=== PATIENT | female | born 1980 | race Caucasian/White ===

== ENCOUNTER 2018-06-09 09:12 | Emergency (ER) | payer SELFPAY ==
--- NOTE | 2018-06-09 09:53 | ER Document Report ---
HPI - HPI Pain Level: 3 Notes: Patient is a 37-year-old female with no significant past medical history who presents to the ED complaining of right shoulder pain primarily with above head activities. Patient states that her pain started a couple days ago. 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 Patient states that she will get a sharp pain during that activity that does not radiate. Patient otherwise does not have any pain or discomfort when she is at rest. Denies any injury. Denies any IV drug use. Denies any headache, fever, neck pain, URI, sore throat, chest pain, palpitations, syncope, cough, shortness of breath, wheeze, dyspnea, abdominal pain, nausea/vomiting/diarrhea, urinary retention, dysuria, hematuria, numbness/tingling, muscle paralysis/ weakness, or rash. - ROS Systems Reviewed and Negative: Yes All other systems reviewed and negative - CONSTITUTIONAL Constitutional: DENIES: Fever, Chills - EENT EENT: DENIES: Sore Throat, Ear Pain, Eye problems - NEURO Neurology: DENIES: Headache, Weakness, Vision blurred, Dizzinesss / Vertigo - CARDIOVASCULAR Cardiovascular: DENIES: Chest pain - RESPIRATORY Respiratory: DENIES: Trouble Breathing, Coughing - GASTROINTESTINAL Gastrointestinal: DENIES: Abdominal Pain, Black / Bloody Stools - REPRODUCTIVE Reproductive: DENIES: : - MUSCULOSKELETAL Musculoskeletal: REPORTS: Extremity pain Past Medical History - Social History Smoking Status: Never Smoker Chew tobacco use (# tins/day): No Frequency of alcohol use: Occasional Drug Abuse: None Family History: Reviewed & Not Pertinent Patient has suicidal ideation: No Patient has homicidal ideation: No - Past Medical History Cardiac Medical History: Reports: Hx Hypertension Neurological Medical History: Reports: Hx Migraine Renal/ Medical History: Reports: Hx Kidney Stones. Denies: Hx Peritoneal Dialysis Past Surgical History: Reports: Hx Cholecystectomy, Hx Tonsillectomy - Immunizations Hx Diphtheria, Pertussis, Tetanus Vaccination: Yes Vertical Provider Document - CONSTITUTIONAL Agree With Documented VS: Yes Notes: PHYSICAL EXAMINATION: GENERAL: Well-appearing, well-nourished and in no acute distress. NECK: Normal range of motion, supple without lymphadenopathy. Non-tender. Spurling negative. No rigidity/meningismus. LUNGS: Breath sounds clear to auscultation bilaterally and equal. No wheezes rales or rhonchi. HEART: Regular rate and rhythm without murmurs, rubs, gallops. Musculoskeletal: Rt shoulder: FROM to passive. LROM to active due to pain to abduction. Strength 4+/5 due to pain. + impingement test. Neg speed test. No crepitus. No erythema or warmth. No deformity or ecchymosis. RC intact 5+ /5 strength. Extremities: No cyanosis, clubbing, or edema b/l. Peripheral pulses 2+. Capillary refill less than 3 seconds. NEUROLOGICAL: Normal speech, normal gait. Normal sensory, motor exams PSYCH: Normal mood, normal affect. SKIN: Warm, Dry, normal turgor, no rashes or lesions noted. - INFECTION CONTROL TRAVEL OUTSIDE OF THE [place] IN LAST 30 DAYS: No Course - Re-evaluation Re-evalutation: 06/09/18 09:51 Patient is an afebrile, well-hydrated, 37-year-old female who presents to the ED with right shoulder pain, suspect impingement. Vitals are acceptable without any significant tachycardia, tachypnea, or hypoxia. PE is otherwise unremarkable for any neurovascular compromise, obvious tendon/ligament rupture, obvious fracture/dislocation, septic joint. No labs or imaging warranted at this time based on H&P. Exercises reviewed. Conservative measures for symptoms. Work note will be provided. Recheck with your PCM this week. Consider consult orthopedics for further evaluation and management with possible injection. Return to the ED with any worsening/concerning symptoms otherwise as reviewed in discharge. Patient is in agreement. Discharge - Discharge Clinical Impression: Right shoulder pain Qualifiers: Chronicity: acute Qualified Code(s): M25.511 - Pain in right shoulder Condition: Stable Disposition: HOME, SELF-CARE Additional Instructions: Rest, Ice, Compression Tylenol/ibuprofen as needed Light stretches daily Strength exercises as able Moist heat and massage may help F/u with your PCP in 3-5 days for a recheck Consider consult(s) with Orthopedics/physical therapy for ongoing/worsening symptoms Return to the ED with any worsening symptoms and/or development of fever, headache, chest pain, palpitations, syncope, shortness of breath, trouble breathing, abdominal pain, n/v/d, muscle weakness/paralysis, numbness/tingling, swelling, redness, or other worsening symptoms that are concerning to you. Forms: Elevated Blood Pressure, Return to Work Referrals: [facility] [Provider Group] - Follow up as needed
[2018-06-09 10:05] VITALS: BP 128/84
== END 2018-06-09 10:05 | disposition home or self-care (01) ==
LOC: ER 09:12
DX: M25.511 Pain in right shoulder (principal); I10 Essential (primary) hypertension
CPT/HCPCS: 99283

== ENCOUNTER 2018-09-27 15:38 | Emergency (ER) | payer BC ==
[2018-09-27] MEDS ORDERED: DIPHENHYDRAMINE HCL 50 MG/ML VIAL IV ONE (16:36)
[2018-09-27] MEDS ORDERED: PROMETHAZINE HCL INJ 25 MG/1 ML VIAL IV ONE (16:37)
[2018-09-27] MEDS ORDERED: KETOROLAC TROMETHAMINE INJ/PF 30 MG/1 ML SDV IV ONE (16:37)
--- NOTE | 2018-09-27 16:40 | ER Document Report ---
ED Medical Screen (RME) - General Chief Complaint: Headache Stated Complaint: HEADACHE Time Seen by Provider: 09/27/18 16:31 Notes: Patient is complaining of a migraine headache for 3 days. She does have a doctor diagnosed history of migraine headaches. This headache is the same as her migraine headaches except this lasted for 3 days. She has been nauseated. Has had to come to the emergency room rarely, but says an IV cocktail usually c onsisting of Benadryl, Toradol, and Phenergan will usually resolve the headache. Denies any fever. Has a history of hypertension on medications. Also has migraine headaches and anxiety. TRAVEL OUTSIDE OF THE [place] IN LAST 30 DAYS: No - Related Data Allergies/Adverse Reactions: Penicillins Allergy (Verified 09/27/18 15:39) metoclopramide HCl [From Reglan] Adverse Reaction (Intermediate, Verified 09/27/18 15:39) Tachycardia Past Medical History - Social History Frequency of alcohol use: Occasional Drug Abuse: None - Past Medical History Cardiac Medical History: Reports: Hx Hypertension Neurological Medical History: Reports: Hx Migraine Renal/ Medical History: Reports: Hx Kidney Stones. Denies: Hx Peritoneal Dialysis Past Surgical History: Reports: Hx Cholecystectomy, Hx Tonsillectomy - Immunizations Hx Diphtheria, Pertussis, Tetanus Vaccination: Yes Physical Exam - Vital signs Vitals: Temp Pulse Resp BP Pulse Ox 97.9 F 76 18 138/81 H 98 09/27/18 15:48 09/27/18 15:48 09/27/18 15:48 09/27/18 15:48 09/27/18 15:48 Course - Vital Signs Vital signs: Temp Pulse Resp BP Pulse Ox 97.9 F 76 18 138/81 H 98 09/27/18 15:48 09/27/18 15:48 09/27/18 15:48 09/27/18 15:48 09/27/18 15:48 Doctor's Discharge - Discharge Referrals: SIMONE ARANA MD [Primary Care Provider] - Follow up as needed
[2018-09-27] MEDS ORDERED: NORMAL SALINE 1000 ML 1,000 ML IV ONE (18:02)
[2018-09-27] MEDS ORDERED: BUTALB/ACETAMINOPHEN/CAFFEINE 1 TAB EACH PO ONE (18:03)
--- NOTE | 2018-09-27 18:09 | ER Document Report ---
ED General - General Chief Complaint: Headache Stated Complaint: HEADACHE Time Seen by Provider: 09/27/18 16:31 Notes: Patient is complaining of a migraine headache for 3 days typical of previous ones. She does have a doctor diagnosed history of migraine headaches. Patient complains of nausea and photophobia. Patient denies any neck stiffness, fevers, any infectious symptoms, vomiting or diarrhea. Has had to come to the emergency room rarely, but says an IV cocktail usually consisting of Benadryl, Toradol, and Phenergan will usually resolve the headache. Prior to arrival patient took one Fioricet that she has prescribed but it did not help which prompted her to come to the ED. TRAVEL OUTSIDE OF THE [place] IN LAST 30 DAYS: No - Related Data Allergies/Adverse Reactions: Penicillins Allergy (Verified 09/27/18 15:39) metoclopramide HCl [From Reglan] Adverse Reaction (Intermediate, Verified 09/27/18 15:39) Tachycardia Past Medical History - General Information source: Patient - Social History Smoking Status: Never Smoker Frequency of alcohol use: Occasional Drug Abuse: None Family History: Reviewed & Not Pertinent Patient has suicidal ideation: No Patient has homicidal ideation: No - Past Medical History Cardiac Medical History: Reports: Hx Hypertension Neurological Medical History: Reports: Hx Migraine Renal/ Medical History: Reports: Hx Kidney Stones. Denies: Hx Peritoneal Dialysis Past Surgical History: Reports: Hx Cholecystectomy, Hx Tonsillectomy - Immunizations Hx Diphtheria, Pertussis, Tetanus Vaccination: Yes Review of Systems - Review of Systems Constitutional: See HPI EENT: See HPI Cardiovascular: No symptoms reported Respiratory: No symptoms reported Gastrointestinal: See HPI Genitourinary: No symptoms reported Female Genitourinary: No symptoms reported Musculoskeletal: See HPI Skin: No symptoms reported Hematologic/Lymphatic: No symptoms reported Neurological/Psychological: No symptoms reported Physical Exam - Vital signs Vitals: Temp Pulse Resp BP Pulse Ox 97.9 F 76 18 138/81 H 98 09/27/18 15:48 09/27/18 15:48 09/27/18 15:48 09/27/18 15:48 09/27/18 15:48 - Notes Notes: PHYSICAL EXAMINATION: Reviewed vital signs and charting by RN GENERAL: Well-appearing, well-nourished and in mild distress. HEAD: Atraumatic, normocephalic. EYES: Pupils equal round and reactive to light, extraocular movements intact, sclera anicteric, conjunctiva are normal. NECK: Normal range of motion, supple LUNGS: Breath sounds clear to auscultation bilaterally and equal. No wheezes rales or rhonchi. HEART: Regular rate and rhythm without murmurs ABDOMEN: Soft, nontender, normoactive bowel sounds. No guarding, no rebound. No masses appreciated. EXTREMITIES: Normal range of motion, no pitting or edema. No cyanosis. NEUROLOGICAL: Face symmetric. Tongue protrudes midline. Extraocular motions intact. Pupils are 2 mm and equal. Normal speech, normal gait. Sensation is grossly intact throughout. Finger to nose testing normal. PSYCH: Normal mood, normal affect. SKIN: Warm, Dry, normal turgor, no rashes or lesions noted. Course - Re-evaluation Re-evalutation: 09/27/18 18:08 37-year-old female with diagnosed history of migraines presents to the emergency department for a typical migraine headache patient states she took one Fioricet about 1:00 this afternoon with no relief prompting her to seek care here. She was last in the emergency department in April 2018. She does state that they are becoming more frequent. She was given a headache cocktail in triage and approximately 1 hour later states that she does feel a little better but still has a intense headache left-sided periorbital. She does state her nausea has resolved. Plan is to give her 1 L of IV fluids and 2 Fioricet. 09/27/18 19:12 Patient received 2 Fioricet and received normal saline 1 L IV. Patient states she was sleeping and she does feel better and is ready to go home. Patient is stable for discharge. - Vital Signs Vital signs: Temp Pulse Resp BP Pulse Ox 97.9 F 76 18 138/81 H 98 09/27/18 15:48 09/27/18 15:48 09/27/18 15:48 09/27/18 15:48 09/27/18 15:48 Discharge - Discharge Clinical Impression: Migraine Qualifiers: Migraine type: without aura Status migrainosus presence: without status migrainosus Intractability: intractable Qualified Code(s): G43.019 - Migraine without aura, intractable, without status migrainosus Condition: Good Disposition: HOME, SELF-CARE Instructions: Antinausea Medication ([facility]), Use of Diphenhydramine, Toradol Injection ([facility]), Migraine Headache ([facility]) Referrals: SIMONE ARANA MD [Primary Care Provider] - Follow up as needed
[2018-09-27 19:32] VITALS: BP 132/79
== END 2018-09-27 19:30 | disposition home or self-care (01) ==
LOC: ER 15:38
DX: G43.019 Migraine without aura, intractable, without status migrainosus (principal); R11.0 Nausea; H53.149 Visual discomfort, unspecified; Z88.0 Allergy status to penicillin
CPT/HCPCS: 99283; 96361; 96374; 96375; J3490; J1200; J1885; J2550; J7030

== ENCOUNTER 2018-10-08 10:31 | Emergency (ER) | payer BC ==
[2018-10-08 10:53] VITALS: BP 145/93
--- NOTE | 2018-10-08 11:15 | ER Document Report ---
HPI - HPI Time Seen by Provider: 10/08/18 11:13 Pain Level: 4 Notes: Patient is a 37-year-old female with no significant past medical history presents emergency department complaining of continued right shoulder pain over the last 3 days. Patient states that she has overhead activities at work and that is when her pain is the worst. I evaluate this patient for the exact same complaint in June. Patient has not been seen by specialist since then. Patient states that her pain did improve thereafter, but did return. Patient states that internal rotation increase the pain as well as abduction activities. Pain does not radiate. No other concerns or complaints. No injury. Denies any headache, fever, neck pain,URI, sore throat, chest pain, palpitations, syncope, cough, shortness of breath, wheeze, dyspnea, abdominal pain, nausea/vomiting/diarrhea, urinary retention, dysuria, hematuria, loss of control of bowel or bladder, numbness/tingling, muscle paralysis/weakness, or rash. - ROS Systems Reviewed and Negative: Yes All other systems reviewed and negative - REPRODUCTIVE Reproductive: DENIES: : - MUSCULOSKELETAL Musculoskeletal: REPORTS: Extremity pain - R shoulder Past Medical History - Social History Smoking Status: Never Smoker Family History: Reviewed & Not Pertinent Patient has suicidal ideation: No Patient has homicidal ideation: No - Past Medical History Cardiac Medical History: Reports: Hx Hypertension Neurological Medical History: Reports: Hx Migraine Renal/ Medical History: Reports: Hx Kidney Stones. Denies: Hx Peritoneal Dialysis Past Surgical History: Reports: Hx Cholecystectomy, Hx Tonsillectomy - Immunizations Hx Diphtheria, Pertussis, Tetanus Vaccination: Yes Vertical Provider Document - CONSTITUTIONAL Agree With Documented VS: Yes Notes: PHYSICAL EXAMINATION: GENERAL: Well-appearing, well-nourished and in no acute distress. NECK: Normal range of motion, supple without lymphadenopathy. Non-tender. S purling negative. No rigidity/meningismus. LUNGS: Breath sounds clear to auscultation bilaterally and equal. No wheezes rales or rhonchi. HEART: Regular rate and rhythm without murmurs, rubs, gallops. Musculoskeletal: Rt shoulder: FROM to passive. LROM to active due to pain to abduction. Strength 4+/5 due to pain. + impingement test. Neg speed test. No crepitus. No erythema or warmth. No deformity or ecchymosis. RC intact 5+/5 strength. N/V intact distal. Extremities: No cyanosis, clubbing, or edema b/l. Peripheral pulses 2+. Capillary refill less than 3 seconds. NEUROLOGICAL: Normal speech, normal gait. Normal sensory, motor exams PSYCH: Normal mood, normal affect. SKIN: Warm, Dry, normal turgor, no rashes or lesions noted. - INFECTION CONTROL TRAVEL OUTSIDE OF THE [place] IN LAST 30 DAYS: No Course - Re-evaluation Re-evalutation: 10/08/18 11:37 Patient is an afebrile, well-hydrated, 37-year-old female who presents to the ED with right shoulder pain which I suspect to be impingement. Vitals are acceptable without any significant tachycardia, tachypnea, or hypoxia. PE is otherwise unremarkable for any neurovascular compromise, obvious tendon/ligament rupture, obvious fracture/dislocation, septic joint. Patient is nontoxic- appearing. Patient is able to ambulate and weight-bear although she is limping. No other labs or imaging warranted at this time based on H&P. I have thoroughly reviewed the patient that she needs to be followed up with a spe cialist for this ongoing intermittent issue. Conservative measures otherwise for symptoms. Recheck with your PCM in 3-5 days. Consider consult orthopedics. Return to the ED with any worsening/concerning symptoms otherwise as reviewed in discharge. Patient is in agreement. - Vital Signs Vital signs: Temp Pulse Resp BP Pulse Ox 98.0 F 78 18 145/93 H 99 10/08/18 10:51 10/08/18 10:51 10/08/18 10:51 10/08/18 10:51 10/08/18 10:51 Discharge - Discharge Clinical Impression: Shoulder pain, right Qualifiers: Chronicity: acute Qualified Code(s): M25.511 - Pain in right shoulder Condition: Stable Disposition: HOME, SELF-CARE Instructions: Exercise Program for the Shoulder ([facility]) Additional Instructions: Rest, Ice Tylenol/ibuprofen as needed Light stretches daily Strength exercises as able Moist heat and massage may help F/u with your PCP in 3-5 days for a recheck Schedule an appoint with orthopedics for further evaluation and management Return to the ED with any worsening symptoms and/or development of fever, headache, chest pain, palpitations, syncope, shortness of breath, trouble breathing, abdominal pain, n/v/d, muscle weakness/paralysis, numbness/tingling, swelling, redness, or other worsening symptoms that are concerning to you. Prescriptions: Diclofenac Sodium [Voltaren] 4 gm TP QID PRN #100 gel..gm. PRN Reason: Forms: Elevated Blood Pressure Referrals: SIMONE ARANA MD [Primary Care Provider] - Follow up as needed [facility] [Provider Group] - Follow up as needed
== END 2018-10-08 11:45 | disposition home or self-care (01) ==
LOC: ER 10:31
DX: M25.511 Pain in right shoulder (principal); I10 Essential (primary) hypertension; Z90.49 Acquired absence of other specified parts of digestive tract
CPT/HCPCS: 99283

== ENCOUNTER 2018-12-29 21:36 | Emergency (ER) | payer BC, MEDICAID ==
[2018-12-30] MEDS ORDERED: ONDANSETRON HCL INJ/PF 4 MG/2 ML SDV IV ONE (00:03)
[2018-12-30] MEDS ORDERED: KETOROLAC TROMETHAMINE INJ/PF 30 MG/1 ML SDV IV ONE (00:03)
--- NOTE | 2018-12-30 00:05 | ER Document Report ---
ED Medical Screen (RME) - General Chief Complaint: Possible Kidney Stone Stated Complaint: BACK PAIN Time Seen by Provider: 12/30/18 00:02 Primary Care Provider: SIMONE ARANA MD [Primary Care Provider] - Follow up as needed Mode of Arrival: Ambulatory Information source: Patient Notes: 38-year-old female presented to ED for right lower back pain that rolls around to the abdomen. She is got a history of kidney stones. She states this pain started intermittently yesterday but this afternoon it became constant. She states she has had constant dry heaves and is vomited x1. She has a history of high blood pressure remained migraines and anxiety. She states she just had her IUD taken out a week ago and is on control now. She has a history of a gallbladder removed and tonsils. She does have tenderness to the right flank area. 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 I have greeted and performed a rapid initial assessment of this patient. A comprehensive ED assessment and evaluation of the patient, analysis of test results and completion of medical decision making process will be conducted by an additional ED providers. TRAVEL OUTSIDE OF THE [place] IN LAST 30 DAYS: No - Related Data Allergies/Adverse Reactions: Penicillins Allergy (Verified 09/27/18 15:39) metoclopramide HCl [From Reglan] Adverse Reaction (Intermediate, Verified 09/27/18 15:39) Tachycardia Past Medical History - Past Medical History Cardiac Medical History: Reports: Hx Hypertension Neurological Medical History: Reports: Hx Migraine Renal/ Medical History: Reports: Hx Kidney Stones. Denies: Hx Peritoneal Dialysis Past Surgical History: Reports: Hx Cholecystectomy, Hx Tonsillectomy - Immunizations Hx Diphtheria, Pertussis, Tetanus Vaccination: Yes Doctor's Discharge - Discharge Referrals: SIMONE ARANA MD [Primary Care Provider] - Follow up as needed
[2018-12-30 00:43] LABS: APPEARANCE,URINE SLIGHTLY-CLOUDY; BILIRUBIN,URINE NEGATIVE (NEGATIVE); COLOR,URINE YELLOW; GLUCOSE, URINE NEGATIVE (NEGATIVE); KETONES,URINE NEGATIVE (NEGATIVE); LEUKOCYTE ESTERASE,URINE NEGATIVE (NEGATIVE); NITRITE,URINE NEGATIVE (NEGATIVE); PROTEIN,URINE NEGATIVE (NEGATIVE); URINE SPECIFIC GRAVITY 1.018; UROBILINOGEN,URINE NEGATIVE mg/dL (<2.0)
--- NOTE | 2018-12-30 01:14 | ER Document Report ---
ED General - General Chief Complaint: Possible Kidney Stone Stated Complaint: BACK PAIN Time Seen by Provider: 12/30/18 00:02 Primary Care Provider: SIMONE ARANA MD [NO LOCAL MD] - Follow up tomorrow Mode of Arrival: Ambulatory Notes: Patient is a 38-year-old female with a history of nephrolithiasis, previous cholecystectomy, who presents with 2 days of right flank pain rating to her rig ht lower abdomen. Patient states her pain started gradually, has worsened since onset. Is a throbbing, aching, constant discomfort. Severe in nature. Nothing improves or worsens the pain. Denies associated hematuria, dysuria, fever or constitutional symptoms. His associated nausea and vomiting. Has not seen her primary care physician regarding today's concerns. States this feels similar to when she is had kidney stones in the past. TRAVEL OUTSIDE OF THE [place] IN LAST 30 DAYS: No - HPI Onset: Yesterday Onset/Duration: Gradual Quality of pain: Achy, Cramping Severity: Moderate Pain Level: 4 Associated symptoms: Nausea, Vomiting Exacerbated by: Denies Relieved by: Denies Similar symptoms previously: Yes Recently seen / treated by doctor: No - Related Data Allergies/Adverse Reactions: Penicillins Allergy (Verified 12/30/18 00:58) metoclopramide HCl [From Reglan] Adverse Reaction (Intermediate, Verified 12/30/18 00:58) Tachycardia Past Medical History - General Information source: Patient - Social History Smoking Status: Never Smoker Frequency of alcohol use: Occasional Drug Abuse: None Family History: Reviewed & Not Pertinent Patient has suicidal ideation: No Patient has homicidal ideation: No - Past Medical History Cardiac Medical History: Reports: Hx Hypertension Neurological Medical History: Reports: Hx Migraine Renal/ Medical History: Reports: Hx Kidney Stones. Denies: Hx Peritoneal Dialysis Past Surgical History: Reports: Hx Cholecystectomy, Hx Tonsillectomy - Immunizations Hx Diphtheria, Pertussis, Tetanus Vaccination: Yes Review of Systems - Review of Systems Notes: Constitutional: Negative for fever. HENT: Negative for sore throat. Eyes: Negative for visual changes. Cardiovascular: Negative for chest pain. Respiratory: Negative for shortness of breath. Gastrointestinal: Positive for right flank tenderness and vomiting Genitourinary: Negative for dysuria. Musculoskeletal: Negative for back pain. Skin: Negative for rash. Neurological: Negative for headaches, weakness or numbness. 10 point ROS negative except as marked above and in HPI. Physical Exam - Vital signs Vitals: Temp Pulse Resp BP Pulse Ox 98.1 F 85 18 150/94 H 100 12/29/18 22:55 12/29/18 22:55 12/29/18 22:55 12/29/18 22:55 12/29/18 22:55 Interpretation: Hypertensive Notes: PHYSICAL EXAMINATION: GENERAL: Well-appearing, well-nourished and in no acute distress. HEAD: Atraumatic, normocephalic. EYES: Pupils equal round and reactive to light, extraocular movements intact, sclera anicteric, conjunctiva are normal. ENT: nares patent, oropharynx clear without exudates. Moist mucous membranes. NECK: Normal range of motion, supple without lymphadenopathy LUNGS: Breath sounds clear to auscultation bilaterally and equal. No wheezes rales or rhonchi. HEART: Regular rate and rhythm without murmurs ABDOMEN: Soft, nontender, normoactive bowel sounds. No guarding, no rebound. No masses appreciated. Mild right CVA tenderness to palpation EXTREMITIES: Normal range of motion, no pitting or edema. No cyanosis. NEUROLOGICAL: No focal neurological deficits. Moves all extremities spontaneously and on command. PSYCH: Normal mood, normal affect. SKIN: Warm, Dry, normal turgor, no rashes or lesions noted. Course - Re-evaluation Re-evalutation: 12/30/18 01:47 Patient presents with right flank pain rating into her right lower groin for the past 48 hours. On exam the patient is well in appearance, vitals within normal limits, in no distress. Patient does have some focal tenderness the right CVA region although no other focal abdominal tenderness rebound or guarding. Carson gonzalez is otherwise without any acute complaints beyond nausea and one episode of vomiting associated with this pain. Urinalysis is unremarkable without evidence of pyelonephritis or . CT of the abdomen and pelvis obtained in triage without contrast does not demonstrate any evidence of urolithiasis, nephrolithiasis or appendicitis. Patient is status post cholecystectomy. Differential includes kidney stone that is subsequently passed, musculoskeletal origin. I have expanded the patient that there is significant diagnostic uncertainty regarding the etiology of her presentation today and have advised her to follow-up with her primary care physician or return to the ER within 24 hours for recheck. I have emphasized given the degree of uncertainty that it is critical that she return immediately should she have any new or worsening symptoms. At this time will discharge with return precautions and follow-up recommendations. Verbal discharge instructions given a the bedside and opportunity for questions given. Medication warnings reviewed. Patient is in agreement with this plan and has verbalized understanding of return precautions and the need for primary care follow-up in the next 24 hours. 12/30/18 01:49 - Vital Signs Vital signs: Temp Pulse Resp BP Pulse Ox 97.5 F 78 20 141/84 H 99 12/30/18 03:10 12/30/18 03:10 12/30/18 03:10 12/30/18 03:10 12/30/18 03:10 - Diagnostic Test Radiology reviewed: Reports reviewed Discharge - Discharge Clinical Impression: Right flank pain Nausea & vomiting Qualifiers: Vomiting type: unspecified Vomiting Intractability: non-intractable Qualified Code(s): R11.2 - Nausea with vomiting, unspecified Condition: Good Disposition: HOME, SELF-CARE Additional Instructions: The exact cause of your pain is uncertain. As we discussed your CT scan and urine study is normal today. Because we are uncertain of what is going on today I strongly encourage you to follow-up with your primary care doctor or return to the emergency room within 24 hours for recheck. Please return immediately if you develop any new or worsening symptoms, worsening of your pain, fever greater than 100.4 F, persistent vomiting, or any other symptoms that are worrisome to you. For your pain: Take ibuprofen 600 mg and acetaminophen 1000 mg every 6 hours together as needed for pain. You have been sent home with Sivan to use as needed Forms: Return to Work Referrals: SIMONE ARANA MD [NO LOCAL MD] - Follow up tomorrow
--- NOTE | 2018-12-30 01:18 | RADIOLOGY REPORT (SQ) ---
CLINICAL HISTORY: right flank pain, hx of kidney stones COMPARISON: None. TECHNIQUE: CT ABDOMEN PELVIS WITHOUT IV CONTRAST on 12/30/2018 12:02 AM CDT This exam was performed according to our departmental dose-optimization program, which includes automated exposure control, adjustment of the mA and/or kV according to patient size and/or use of iterative reconstruction technique. FINDINGS: Lower lungs are clear. Abdomen: The liver is normal in appearance. There is no biliary dilatation. Cholecystectomy was performed. The pancreas and spleen are normal in appearance. The adrenal glands and kidneys are unremarkable. Abdominal aorta is normal in course and caliber without aneurysm. There is no free air. There is no retroperitoneal adenopathy. Pelvis: There is no bowel obstruction. Urinary bladder is unremarkable. There is no free fluid. Uterus is normal in size. Appendix is normal. Skeleton: There are no acute osseous findings. No suspicious bony lesions. IMPRESSION: No acute inflammatory process. No renal or ureteral calculi.
[2018-12-30] MEDS ORDERED: LIDOCAINE 5% (700 MG) TRANSDERMAL ADH..PATCH TP ONE (01:49)
[2018-12-30] MEDS ORDERED: ONDANSETRON ODT 4 MG TAB (6 TAB/ER DISP) PO PRN (01:49)
[2018-12-30] MEDS ORDERED: FENTANYL CITRATE INJ/PF 100 MCG/2 ML AMPUL IV PRN (01:49)
[2018-12-30 03:12] VITALS: BP 141/84
== END 2018-12-30 03:15 | disposition home or self-care (01) ==
LOC: ER 21:36
DX: R11.2 Nausea with vomiting, unspecified (principal); R10.9 Unspecified abdominal pain; M54.9 Dorsalgia, unspecified; I10 Essential (primary) hypertension; Z87.442 Personal history of urinary calculi; Z90.49 Acquired absence of other specified parts of digestive tract; Z88.0 Allergy status to penicillin
CPT/HCPCS: 99284; 96374; 96375; 81025; 81001; 74176; J3010; J1885; J2405

== ENCOUNTER 2019-01-28 18:47 | Emergency (ER) | payer BC ==
[2019-01-28 19:44] VITALS: BP 134/85
== END 2019-01-28 22:18 | disposition left against medical advice (07) ==
LOC: ER 18:47
DX: Z53.21 Procedure and treatment not carried out due to patient leaving prior to being seen by health care provider (principal); M25.511 Pain in right shoulder

== ENCOUNTER 2019-02-01 21:02 | Emergency (ER) | payer BC ==
[2019-02-01 21:10] VITALS: BP 134/90
--- NOTE | 2019-02-01 22:17 | RADIOLOGY REPORT (SQ) ---
3 VIEWS OF RIGHT SHOULDER HISTORY: Joint pain. COMPARISON: None. FINDINGS: No acute fracture is seen. The joint spaces are preserved. The soft tissues are unremarkable. IMPRESSION: No acute fracture or malalignment.
[2019-02-01] MEDS ORDERED: TRAMADOL HCL 50 MG TABLET PO ONE (23:01)
--- NOTE | 2019-02-01 23:05 | ER Document Report ---
ED Extremity Problem, Upper - General Chief Complaint: Shoulder Pain Stated Complaint: RIGHT SHOULDER PAIN Time Seen by Provider: 02/01/19 22:47 Primary Care Provider: SUYAPA PENG FNP [Primary Care Provider] - Follow up as needed Mode of Arrival: Ambulatory Information source: Patient TRAVEL OUTSIDE OF THE [place] IN LAST 30 DAYS: No - HPI Patient complains to provider of: Pain, Right, Shoulder Notes: Patient here with complaints of right shoulder pain. The patient states she is been dealing with some chronic right shoulder pain for quite some time now. She seen orthopedics and is currently in the process of getting an MRI set up. States that a few days ago she lifted up to heavy totes at work and felt severe pain in her right shoulder and has had pain since. She is been taking NSAIDs as well as using topical NSAIDs with out any relief. She has an appointment scheduled with her orthopedist on Saturday, but states that she has not been able to sleep due to pain is here hoping to get something to help with her pain. She denies any trauma. No fever. No numbness, [place], weakness. Pain is constant, severe, worse with any movement, better with rest. No chest pain or shortness of breath. No abdominal pain. No nausea, vomiting, diarrhea. She denies any other complaints at this time. - Related Data Allergies/Adverse Reactions: Penicillins Allergy (Verified 01/28/19 18:48) metoclopramide HCl [From Reglan] Adverse Reaction (Intermediate, Verified 01/28/19 18:48) Tachycardia Past Medical History - Social History Smoking Status: Unknown if Ever Smoked Family History: Reviewed & Not Pertinent - Past Medical History Cardiac Medical History: Reports: Hx Hypertension Neurological Medical History: Reports: Hx Migraine Renal/ Medical History: Reports: Hx Kidney Stones. Denies: Hx Peritoneal Dialysis Past Surgical History: Reports: Hx Cholecystectomy, Hx Tonsillectomy - Immunizations Hx Diphtheria, Pertussis, Tetanus Vaccination: Yes Review of Systems - Review of Systems -: Yes All other systems reviewed and negative Physical Exam - Vital signs Vitals: Temp Pulse Resp BP Pulse Ox 98.1 F 114 H 20 134/90 H 97 02/01/19 21:08 02/01/19 21:08 02/01/19 21:08 02/01/19 21:08 02/01/19 21:08 - Notes Notes: GENERAL: alert, cooperative, nontoxic, no distress. HEAD: normocephalic, atraumatic EYES: conjunctiva pink without discharge, no external redness or swelling. EARS: no external swelling, no external redness NOSE: atraumatic, no external swelling MOUTH/THROAT: mucous membranes moist and pink NECK: soft, supple, full range of motion, no meningismus. CHEST: no distress, lungs clear and equal throughout. No wheezing, rales, rhonchi. CARDIAC: regular rate and rhythm, no murmur, normal capillary refill, normal pulses. BACK: full range of motion, no CVA tenderness. EXTREMITIES: Tenderness palpation of the right anterior shoulder at the joint. Slight limited range of motion secondary to pain. Normal strength. Normal sensation and pulse distally. No redness, no swelling. NEURO: alert and oriented 3, no focal deficits, full range of motion of all extremities. PYSCH: appropriate mood, affect. Patient is cooperative. SKIN: pink, warm, dry, no rash. Course - Re-evaluation Re-evalutation: 02/01/19 23:03 Patient is nontoxic-appearing with stable vitals. Patient here with complaints of right shoulder pain. She has some chronic right shoulder problems the pain is been significantly worse after she lifted up some heavy totes at work. She has an appointment scheduled with her orthopedist on Saturday, but the pain is gotten significantly worse and she wanted to have this evaluated was hoping to get some pain medication. On exam there is no redness, she has afebrile and there is no signs of infection. X-ray shows no acute abnormality. Neurovascularly she is intact with no abnormalities. Did look the patient up on [place] [facility] aware, she has had no narcotic pain prescriptions in the last several years, therefore I do not mind giving her a very small supply of Ultram to take as needed for pain with her NSAIDs that she is already taking. Patient verbalized understanding of this. She is instructed to follow-up with her orthopedist as scheduled on Saturday, follow-up sooner for worsening pain, fever, redness, swelling, any further concerns. The patient's emergency department workup and current diagnosis were explained to the patient and or family. Follow-up instructions were provided. Medications if prescribed were discussed. Instructions for when to return to the emergency department including specific worrisome symptoms were discussed with the patient and/or family. - Vital Signs Vital signs: Temp Pulse Resp BP Pulse Ox 98.1 F 114 H 20 134/90 H 97 02/01/19 21:08 02/01/19 21:08 02/01/19 21:08 02/01/19 21:08 02/01/19 21:08 - Diagnostic Test Radiology reviewed: Image reviewed, Reports reviewed - Negative for right shoulder Discharge - Discharge Clinical Impression: Right shoulder pain Qualifiers: Chronicity: chronic Qualified Code(s): M25.511 - Pain in right shoulder; G89.29 - Other chronic pain Condition: Stable Disposition: HOME, SELF-CARE Instructions: Shoulder Injury (OM), Exercise Program for the Shoulder ([facility]) Additional Instructions: Take medication as prescribed. Follow-up with your orthopedist as scheduled on Saturday. Follow-up sooner for worsening pain, fever, redness, numbness, tingling, weakness, any further concerns. Prescriptions: Tramadol HCl [Ultram 50 mg Tablet] 50 mg PO Q6HP PRN #12 tablet PRN Reason: Forms: Elevated Blood Pressure, Smoking Cessation Education Referrals: SUYAPA PENG FNP [Primary Care Provider] - Follow up as needed
== END 2019-02-01 23:39 | disposition home or self-care (01) ==
LOC: ER 21:02
DX: M25.511 Pain in right shoulder (principal); G89.29 Other chronic pain; I10 Essential (primary) hypertension; Z90.49 Acquired absence of other specified parts of digestive tract; Z88.0 Allergy status to penicillin; Z87.442 Personal history of urinary calculi
CPT/HCPCS: 99283

== ENCOUNTER 2019-02-16 07:26 | Emergency (ER) | payer SELFPAY ==
[2019-02-16 08:19] LABS: ABSOLUTE BASOPHILS # (AUTO) 0.1 10^3/uL (0.0-0.2); ABSOLUTE EOSINOPHILS # (AUTO) 0.2 10^3/uL (0.0-0.6); ABSOLUTE LYMPHOCYTES (AUTO) 1.7 10^3/uL (0.5-4.7); ABSOLUTE MONOCYTES (AUTO) 0.5 10^3/uL (0.1-1.4); ABSOLUTE NEUT (AUTO) 4.4 10^3/uL (1.7-8.2); EOSINOPHILS % (AUTO) 2.2 % (0-6); MEAN CORPUSCULAR HEMOGLOBIN 31.7 pg (27.0-33.4); MEAN CORPUSCULAR HGB CONC 35.1 g/dL (32.0-36.0); MEAN CORPUSCULAR VOLUME 90 fl (80-97); MONOCYTES % (AUTO) 6.8 % (3-13); PLATELET COUNT 245 10^3/uL (150-450); RED CELL DISTRIBUTION WIDTH 13.2 % (11.5-14.0); TOTAL CELLS COUNTED % (AUTO) 100 %; WHITE BLOOD COUNT 6.8 10^3/uL (4.0-10.5)
[2019-02-16 08:32] LABS: AMORPHOUS SEDIMENT,URINE TRACE /HPF; APPEARANCE,URINE TURBID; BILIRUBIN,URINE NEGATIVE (NEGATIVE); GLUCOSE, URINE NEGATIVE (NEGATIVE); KETONES,URINE NEGATIVE (NEGATIVE); LEUKOCYTE ESTERASE,URINE NEGATIVE (NEGATIVE); NITRITE,URINE NEGATIVE (NEGATIVE); PROTEIN,URINE 30 mg/dL (NEGATIVE); URINE SPECIFIC GRAVITY 1.025; UROBILINOGEN,URINE NEGATIVE mg/dL (<2.0)
[2019-02-16 08:33] LABS: COLOR,URINE YELLOW
[2019-02-16 09:04] LABS: ALANINE AMINOTRANSFERASE 26 U/L (9-52); ALBUMIN 4.2 g/dL (3.5-5.0); ALKALINE PHOSPHATASE 50 U/L (38-126); ANION GAP 10 (5-19); ASPARTATE AMINO TRANSFERASE 20 U/L (14-36); BILIRUBIN,DIRECT 0.3 mg/dL (0.0-0.4); BILIRUBIN,TOTAL 0.6 mg/dL (0.2-1.3); BLOOD UREA NITROGEN 8 mg/dL (7-20); CALCIUM 9.5 mg/dL (8.4-10.2); CARBON DIOXIDE 29 mmol/L (22-30); CHLORIDE 102 mmol/L (98-107); GLUCOSE 90 mg/dL (75-110); POTASSIUM 3.5 mmol/L (3.6-5.0); SODIUM 140.7 mmol/L (137-145)
[2019-02-16] MEDS ORDERED: NORMAL SALINE 1000 ML 1,000 ML IV ONE (09:12)
[2019-02-16] MEDS ORDERED: ONDANSETRON HCL INJ/PF 4 MG/2 ML SDV IV ONE (09:12)
--- NOTE | 2019-02-16 09:52 | ER Document Report ---
ED GI/ - General Chief Complaint: Nausea/Vomiting Stated Complaint: VOMITING/CRAMPS/FATIGUE Time Seen by Provider: 02/16/19 08:23 Mode of Arrival: Ambulatory Information source: Patient Notes: Patient is a 38-year-old female presented to the emergency department with headache, nausea, vomiting and breast pain that started . Patient reports her last normal period was on 02/05/2019. She does state she had a Mirena IUD removed on December 15 and started taking control pills. Patient reports that she feels like she may be . She states that she took a home test and it was faintly positive. Patient reports that she is a G5, P4. She has a history of hypertension. She denies any fevers or abdominal pain. TRAVEL OUTSIDE OF THE [place] IN LAST 30 DAYS: No - Related Data Allergies/Adverse Reactions: Penicillins Allergy (Verified 02/16/19 07:27) metoclopramide HCl [From Reglan] Adverse Reaction (Intermediate, Verified 02/16/19 07:27) Tachycardia Past Medical History - General Information source: Patient - Social History Smoking Status: Never Smoker Frequency of alcohol use: None Drug Abuse: None Family History: Reviewed & Not Pertinent Patient has suicidal ideation: No Patient has homicidal ideation: No - Past Medical History Cardiac Medical History: Reports: Hx Hypertension Neurological Medical History: Reports: Hx Migraine Renal/ Medical History: Reports: Hx Kidney Stones. Denies: Hx Peritoneal Dialysis Past Surgical History: Reports: Hx Cholecystectomy, Hx Tonsillectomy - Immunizations Hx Diphtheria, Pertussis, Tetanus Vaccination: Yes Review of Systems - Review of Systems Constitutional: No symptoms reported EENT: No symptoms reported Cardiovascular: No symptoms reported Respiratory: No symptoms reported Gastrointestinal: Nausea, Vomiting Genitourinary: No symptoms reported Female Genitourinary: No symptoms reported Musculoskeletal: See HPI Skin: No symptoms reported Hematologic/Lymphatic: No symptoms reported Neurological/Psychological: Headaches Physical Exam - Vital signs Vitals: Temp Pulse Resp BP Pulse Ox 98.1 F 80 18 149/82 H 95 02/16/19 07:42 02/16/19 07:42 02/16/19 07:42 02/16/19 07:42 02/16/19 07:42 - Notes Notes: PHYSICAL EXAMINATION: GENERAL: Well-appearing, well-nourished and in no acute distress. HEAD: Atraumatic, normocephalic. EYES: Pupils equal round and reactive to light, extraocular movements intact, conjunctiva are normal. ENT: Nares patent, oropharynx clear without exudates. Moist mucous membranes. NECK: Normal range of motion, supple without lymphadenopathy LUNGS: Breath sounds clear to auscultation bilaterally and equal. No wheezes rales or rhonchi. HEART: Regular rate and rhythm without murmurs ABDOMEN: Soft, nontender, nondistended abdomen. No guarding, no rebound. No masses appreciated. Female : No CVA tenderness Musculoskeletal: Normal range of motion, no pitting or edema. No cyanosis. NEUROLOGICAL: Cranial nerves grossly intact. Normal speech, normal gait. Nor mal sensory, motor exams PSYCH: Normal mood, normal affect. SKIN: Warm, Dry, normal turgor, no rashes or lesions noted. Course - Re-evaluation Re-evalutation: Patient appears well, abdomen is soft, nontender with no guarding and no rebound. Labs as recorded. CBC, CMP and serum hCG are all unremarkable. Urinalysis normal. Patient feels much improved after administration of antiemetics and IV fluids. Patient's vital signs have been within normal limits since time of arrival. - Vital Signs Vital signs: Temp Pulse Resp BP Pulse Ox 98.1 F 57 L 16 131/80 H 100 02/16/19 07:42 02/16/19 10:43 02/16/19 10:43 02/16/19 10:43 02/16/19 10:43 - Laboratory Result Diagrams: 02/16/19 08:09 02/16/19 08:09 Laboratory results interpreted by me: 02/16/19 02/16/19 08:09 08:09 Potassium 3.5 L Urine Protein 30 H Urine Blood SMALL H Discharge - Discharge Clinical Impression: Vomiting Qualifiers: Vomiting type: unspecified Vomiting Intractability: unspecified Nausea presence: unspecified Qualified Code(s): R11.10 - Vomiting, unspecified Fatigue Qualifiers: Fatigue type: unspecified Qualified Code(s): R53.83 - Other fatigue Condition: Stable Disposition: HOME, SELF-CARE Additional Instructions: All of your lab work today was unremarkable. Your serum test was negative. Please continue to push fluids. Use the antinausea medication as needed. Follow-up with primary care. Prescriptions: Ondansetron [Zofran Odt 4 mg Tablet] 1 - 2 tab PO Q4H PRN #15 tab.rapdis PRN Reason: For Nausea/Vomiting Forms: Return to Work
[2019-02-16 10:44] VITALS: BP 131/80
== END 2019-02-16 10:44 | disposition home or self-care (01) ==
LOC: ER 07:26
DX: R11.2 Nausea with vomiting, unspecified (principal); R53.83 Other fatigue; N64.4 Mastodynia; I10 Essential (primary) hypertension
CPT/HCPCS: 99284; 96361; 96374; 36415; 84702; 85025; 81025; 80053; 81001; J2405; J7030

== ENCOUNTER 2019-06-03 18:39 | Emergency (ER) | payer BC ==
[2019-06-03 18:52] VITALS: BP 136/77
--- NOTE | 2019-06-03 19:07 | ER Document Report ---
ED Medical Screen (RME) - General Chief Complaint: Knee Pain Stated Complaint: RIGHT KNEE PAIN/SWELLING Time Seen by Provider: 06/03/19 19:03 Mode of Arrival: Ambulatory Information source: Patient Notes: Patient presents with right knee pain. Reports knee pain for the last couple months but recently she started working with a new job and is hard on her feet. Also started working out. Denies recent trauma. Reports in the past she has had swelling on the knee and had to have it drained. No erythema no warmth noted at this time. I have greeted and performed a rapid initial assessment of this patient. A comprehensive ED assessment and evaluation of the patient, analysis of test results and completion of the medical decision making process will be conducted by additional ED providers. Dictation of this chart was performed using voice recognition software; therefore, there may be some unintended grammatical errors. TRAVEL OUTSIDE OF THE [place] IN LAST 30 DAYS: No - Related Data Allergies/Adverse Reactions: Penicillins Allergy (Verified 02/16/19 07:27) metoclopramide HCl [From Reglan] Adverse Reaction (Intermediate, Verified 02/16/19 07:27) Tachycardia Past Medical History - Past Medical History Cardiac Medical History: Reports: Hx Hypertension Neurological Medical History: Reports: Hx Migraine Renal/ Medical History: Reports: Hx Kidney Stones. Denies: Hx Peritoneal Dialysis Past Surgical History: Reports: Hx Cholecystectomy, Hx Tonsillectomy - Immunizations Hx Diphtheria, Pertussis, Tetanus Vaccination: Yes Physical Exam - Vital signs Vitals: Temp Pulse Resp BP Pulse Ox 97.9 F 66 18 136/77 H 100 06/03/19 18:51 06/03/19 18:51 06/03/19 18:51 06/03/19 18:51 06/03/19 18:51 Course - Vital Signs Vital signs: Temp Pulse Resp BP Pulse Ox 97.9 F 66 18 136/77 H 100 06/03/19 18:51 06/03/19 18:51 06/03/19 18:51 06/03/19 18:51 06/03/19 18:51
--- NOTE | 2019-06-03 19:24 | RADIOLOGY REPORT (SQ) ---
EXAM DESCRIPTION: KNEE RIGHT 4 VIEWS COMPLETED DATE/TIME: 06/03/2019 7:18 pm REASON FOR STUDY: pain swelling COMPARISON: None. NUMBER OF VIEWS: Four views. TECHNIQUE: AP, lateral, and both oblique radiographic images acquired of the right knee. LIMITATIONS: None. FINDINGS: MINERALIZATION: Normal. BONES: No acute fracture or dislocation. No worrisome bone lesions. JOINT: No effusion. SOFT TISSUES: No soft tissue swelling. No radio-opaque foreign body. OTHER: No other significant finding. IMPRESSION: NEGATIVE STUDY OF THE RIGHT KNEE. NO RADIOGRAPHIC EVIDENCE OF ACUTE INJURY. TECHNICAL DOCUMENTATION: JOB ID: [id number] [employer]- All Rights Reserved Reading location - IP/workstation name: [email or web address]
[2019-06-03] MEDS ORDERED: HYDROCODONE/ACETAMINOPHEN 5-325 MG (6 TAB/ER DISP) PO PRN (20:38)
--- NOTE | 2019-06-03 20:42 | ER Document Report ---
HPI - HPI Patient complains to provider of: Right knee pain Time Seen by Provider: 06/03/19 19:03 Onset/Duration: Gradual Quality of pain: Achy Pain Level: 3 Context: Patient reports a 3-day history of right knee pain. Patient denies any trauma to the knee. Patient states she did recently start a new job in which she is on her feet frequently and also started working out this week. Associated Symptoms: Other - Right knee pain. denies: Fever Exacerbated by: Standing, Movement, Walking Relieved by: Denies Similar symptoms previously: No Recently seen / treated by doctor: No - ROS ROS below otherwise negative: Yes Systems Reviewed and Negative: Yes All other systems reviewed and negative - CONSTITUTIONAL Constitutional: DENIES: Fever - GASTROINTESTINAL Gastrointestinal: DENIES: Nausea, Patient vomiting - REPRODUCTIVE Reproductive: DENIES: : - MUSCULOSKELETAL Musculoskeletal: REPORTS: Extremity pain. 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 Denies: Hx Peritoneal Dialysis Past Surgical History: Reports: Hx Cholecystectomy, Hx Tonsillectomy - Immunizations Hx Diphtheria, Pertussis, Tetanus Vaccination: Yes Vertical Provider Document - CONSTITUTIONAL Agree With Documented VS: Yes Exam Limitations: No Limitations General Appearance: WD/WN, No Apparent Distress - INFECTION CONTROL TRAVEL OUTSIDE OF THE [place] IN LAST 30 DAYS: No - HEENT HEENT: Atraumatic, Normocephalic - NECK Neck: Normal Inspection, Supple. negative: Lymphadenopathy-Left, Lymphadenopathy-Right - RESPIRATORY Respiratory: No Respiratory Distress - CARDIOVASCULAR Pulses: Normal: Posterior tibial - MUSCULOSKELETAL/EXTREMETIES Musculoskeletal/Extremeties: MAEW, FROM, Tender - Tenderness to medial inferior compartment of right knee, no effusion, no laxity with varus or valgus maneuvers. Patellar tendon intact., No Edema. negative: Eccymosis - NEURO Level of Consciousness: Awake, Alert, Appropriate Motor/Sensory: No Motor Deficit, No Sensory Deficit - DERM Integumentary: Warm, Dry, No Rash Course - Re-evaluation Re-evalutation: 06/03/19 20:39 No acute findings on x-ray. Patient denies any recent trauma. Patient does report starting a new job as well as starting workouts at the gym which have aggravated her right knee pain. Patient states she does feel knee gives out periodically. Will immobilize and refer to orthopedics at this time. - Vital Signs Vital signs: Temp Pulse Resp BP Pulse Ox 97.9 F 66 18 136/77 H 100 06/03/19 18:51 06/03/19 18:51 06/03/19 18:51 06/03/19 18:51 06/03/19 18:51 - Diagnostic Test Radiology reviewed: Image reviewed, Reports reviewed Procedures - Immobilization Right Knee Pre-Proc Neuro Vasc Exam: Normal Immobilizer type: Knee immobilizer Performed by: PCT Post-Proc Neuro Vasc Exam: Normal Alignment checked and good: Yes Discharge - Discharge Clinical Impression: Overuse injury Right knee pain Qualifiers: Chronicity: unspecified Qualified Code(s): M25.561 - Pain in right knee Condition: Stable Disposition: HOME, SELF-CARE Instructions: Use of Crutches ([facility]), Ice & Elevation ([facility]), Knee Immobilizing Splint ([facility]), Oral Narcotic Medication ([facility]), Overuse Syndrome ([facility]) Additional Instructions: Return immediately for any new or worsening symptoms Followup with your primary care provider, call tomorrow to make a followup appointment Weightbearing as tolerated Follow-up with orthopedics for further evaluation, call tomorrow for an appointment Forms: Return to Work Referrals: IBRAHIMA ROBERTS MD [Primary Care Provider] - Follow up as needed [facility] [Provider Group] - Follow up as needed
== END 2019-06-03 21:00 | disposition home or self-care (01) ==
LOC: ER 18:39
DX: M25.561 Pain in right knee (principal); M79.604 Pain in right leg; X50.3XXA Overexertion from repetitive movements, initial encounter; I10 Essential (primary) hypertension
CPT/HCPCS: 99283; 73564; L1830

== ENCOUNTER 2019-07-07 20:18 | Emergency (ER) | payer BC ==
--- NOTE | 2019-07-07 20:31 | ER Document Report ---
ED Medical Screen (RME) - General Chief Complaint: Flank Pain Stated Complaint: POSSIBLE KIDNEY STONE Time Seen by Provider: 07/07/19 20:28 Primary Care Provider: IBRAHIMA ROBERTS MD [Primary Care Provider] - Follow up as needed Mode of Arrival: Ambulatory Information source: Patient Notes: 78-year-old female with history of kidney stones presents emergency department with right-sided flank pain since Saturday now radiating around to the right side of her stomach today. With nausea and vomiting. Declines antinausea medicine. Took Compazine earlier today for pain. Denies . I have greeted and performed a rapid initial assessment of this patient. A comprehensive ED assessment and evaluation of the patient, analysis of test results and completion of the medical decision making process will be conducted by additional ED providers. Dictation of this chart was performed using voice recognition software; therefore, there may be some unintended grammatical errors. TRAVEL OUTSIDE OF THE [place] IN LAST 30 DAYS: No - Related Data Allergies/Adverse Reactions: Penicillins Allergy (Verified 02/16/19 07:27) metoclopramide HCl [From Reglan] Adverse Reaction (Intermediate, Verified 02/16/19 07:27) Tachycardia Past Medical History - Past Medical History Cardiac Medical History: Reports: Hx Hypertension Neurological Medical History: Reports: Hx Migraine Renal/ Medical History: Reports: Hx Kidney Stones. Denies: Hx Peritoneal Dialysis Past Surgical History: Reports: Hx Cholecystectomy, Hx Tonsillectomy - Immunizations Hx Diphtheria, Pertussis, Tetanus Vaccination: Yes Physical Exam - Vital signs Vitals: Temp Pulse Resp BP Pulse Ox 98.0 F 92 18 126/77 H 97 07/07/19 20:23 07/07/19 20:23 07/07/19 20:23 07/07/19 20:23 07/07/19 20:23 Course - Vital Signs Vital signs: Temp Pulse Resp BP Pulse Ox 98.0 F 92 18 126/77 H 97 07/07/19 20:23 07/07/19 20:23 07/07/19 20:23 07/07/19 20:23 07/07/19 20:23 Doctor's Discharge - Discharge Referrals: IBRAHIMA ROBERTS MD [Primary Care Provider] - Follow up as needed
[2019-07-07 21:01] LABS: ABSOLUTE BASOPHILS # (AUTO) 0.1 10^3/uL (0.0-0.2); ABSOLUTE EOSINOPHILS # (AUTO) 0.3 10^3/uL (0.0-0.6); ABSOLUTE LYMPHOCYTES (AUTO) 3.8 10^3/uL (0.5-4.7); ABSOLUTE MONOCYTES (AUTO) 0.8 10^3/uL (0.1-1.4); ABSOLUTE NEUT (AUTO) 6.3 10^3/uL (1.7-8.2); EOSINOPHILS % (AUTO) 2.4 % (0-6); HEMATOCRIT 38.6 % (36.0-47.0); HEMOGLOBIN 13.4 g/dL (12.0-15.5); MEAN CORPUSCULAR HEMOGLOBIN 31.2 pg (27.0-33.4); MEAN CORPUSCULAR HGB CONC 34.6 g/dL (32.0-36.0); MEAN CORPUSCULAR VOLUME 90 fl (80-97); MONOCYTES % (AUTO) 6.9 % (3-13); RED BLOOD COUNT 4.28 10^6/uL (3.72-5.28); RED CELL DISTRIBUTION WIDTH 13.6 % (11.5-14.0); SEGMENTED NEUTROPHILS % (AUTO) 55.7 % (42-78); TOTAL CELLS COUNTED % (AUTO) 100 %; WHITE BLOOD COUNT 11.2 10^3/uL (4.0-10.5)
[2019-07-07 21:12] LABS: APPEARANCE,URINE SLIGHTLY-CLOUDY; BILIRUBIN,URINE NEGATIVE (NEGATIVE); COLOR,URINE YELLOW; GLUCOSE, URINE NEGATIVE (NEGATIVE); KETONES,URINE NEGATIVE (NEGATIVE); LEUKOCYTE ESTERASE,URINE NEGATIVE (NEGATIVE); NITRITE,URINE NEGATIVE (NEGATIVE); PROTEIN,URINE NEGATIVE (NEGATIVE); URINE SPECIFIC GRAVITY 1.028; UROBILINOGEN,URINE NEGATIVE mg/dL (<2.0)
[2019-07-07 21:16] LABS: PLATELET COUNT 242 10^3/uL (150-450)
[2019-07-07 21:19] LABS: ALBUMIN 4.4 g/dL (3.5-5.0); ALKALINE PHOSPHATASE 70 U/L (38-126); ANION GAP 8 (5-19); ASPARTATE AMINO TRANSFERASE 21 U/L (14-36); BILIRUBIN,DIRECT 0.1 mg/dL (0.0-0.4); BILIRUBIN,TOTAL 0.3 mg/dL (0.2-1.3); BLOOD UREA NITROGEN 14 mg/dL (7-20); CALCIUM 9.6 mg/dL (8.4-10.2); CARBON DIOXIDE 32 mmol/L (22-30); CHLORIDE 98 mmol/L (98-107); GLUCOSE 93 mg/dL (75-110); POTASSIUM 3.5 mmol/L (3.6-5.0); TOTAL PROTEIN 7.7 g/dL (6.3-8.2)
[2019-07-07] MEDS ORDERED: ONDANSETRON HCL INJ/PF 4 MG/2 ML SDV IV ONE (22:22)
[2019-07-07] MEDS ORDERED: MORPHINE SULFATE 10 MG/ML INJ IV ONE (22:22)
[2019-07-07] MEDS ORDERED: NORMAL SALINE 1000 ML 1,000 ML IV ONE (22:22)
[2019-07-07] MEDS ORDERED: KETOROLAC TROMETHAMINE INJ/PF 30 MG/1 ML SDV IV ONE (22:22)
--- NOTE | 2019-07-07 22:23 | ER Document Report ---
ED GI/ - General Chief Complaint: Flank Pain Stated Complaint: POSSIBLE KIDNEY STONE Time Seen by Provider: 07/07/19 20:28 Primary Care Provider: IBRAHIMA ROBERTS MD [NO LOCAL MD] - Follow up as needed Mode of Arrival: Ambulatory Notes: Patient is a 38-year-old female with a history of kidney stones that comes to the emergency department for chief complaint of intermittent flank pain on the right side radiating around to her abdomen, this is been mild but today pain got much worse, she started feeling clammy and chills, she got nauseated. She also states she has had 4 episodes of loose stools today. Pain is worse in both the flank and the abdomen on the right side today. She denies fever, vomiting. She denies any surgeries except cholecystectomy, takes no daily medications. TRAVEL OUTSIDE OF THE [place] IN LAST 30 DAYS: No - Related Data Allergies/Adverse Reactions: Penicillins Allergy (Verified 02/16/19 07:27) metoclopramide HCl [From Reglan] Adverse Reaction (Intermediate, Verified 02/16/19 07:27) Tachycardia Home Medications: Losartan-HCTZ 100/12.5mg - 1 tab Daily. Propanolol 20mg - 1 tab QID Past Medical History - General Information source: Patient - Social History Smoking Status: Never Smoker Frequency of alcohol use: Occasional Drug Abuse: None Lives with: Family Family History: Reviewed & Not Pertinent Patient has suicidal ideation: No Patient has homicidal ideation: No - Past Medical History Cardiac Medical History: Reports: Hx Hypertension Neurological Medical History: Reports: Hx Migraine Renal/ Medical History: Reports: Hx Kidney Stones. Denies: Hx Peritoneal Dialysis Past Surgical History: Reports: Hx Cholecystectomy, Hx Tonsillectomy - Immunizations Hx Diphtheria, Pertussis, Tetanus Vaccination: Yes Review of Systems - Review of Systems Constitutional: No symptoms reported EENT: No symptoms reported Cardiovascular: No symptoms reported Respiratory: No symptoms reported Gastrointestinal: See HPI Genitourinary: See HPI Female Genitourinary: No symptoms reported Musculoskeletal: No symptoms reported Skin: No symptoms reported Hematologic/Lymphatic: No symptoms reported Neurological/Psychological: No symptoms reported Physical Exam - Vital signs Vitals: Temp Pulse Resp BP Pulse Ox 98.0 F 92 18 126/77 H 97 07/07/19 20:23 07/07/19 20:23 07/07/19 20:23 07/07/19 20:23 07/07/19 20:23 - Notes Notes: GENERAL: Alert, interacts well. No acute distress. HEAD: Normocephalic, atraumatic. EYES: Pupils equal, round, and reactive to light. Extraocular movements intact. ENT: Oral mucosa moist, tongue midline. Oropharynx unremarkable. Airway patent. LUNGS: Clear to auscultation bilaterally, no wheezes, rales, or rhonchi. No respiratory distress. HEART: Regular rate and rhythm. No murmur ABDOMEN: Soft, non-tender. Non-distended. Bowel sounds present in all 4 quadrants. GENITOURINARY: Deferred EXTREMITIES: Moves all 4 extremities spontaneously. No edema, normal radial and dorsalis pedis pulses bilaterally. No cyanosis. BACK: no cervical, thoracic, lumbar midline tenderness. No saddle anesthesia, normal distal neurovascular exam. Moves all extremities in full range of motion. NEUROLOGICAL: Alert and oriented x3. Normal speech. Cranial nerves II through XII grossly intact. PSYCH: Normal affect, normal mood. SKIN: Warm, dry, normal turgor. No rashes or lesions noted. Course - Re-evaluation Re-evalutation: Abdomen is soft and benign. There is no CVA tenderness noted on her exam either. Patient is nontoxic in appearance. Vital signs unremarkable. I did review work-up from triage including CBC, chemistry, urinalysis. This is unremarkable except for some borderline low potassium and dehydration. Given IV fluids, discussed the potassium with patient. test negative. I did not order the CAT scan but I did review the CAT scan ordered in triage and this shows no acute findings. There is no nephrolithiasis either. Discussed with patient. Patient was symptomatic on reevaluation. I suspect this is a viral illness because of her chills, generalized pain and aches, and intermittent diarrhea. She has not been on recent antibiotics, had any recent travel, and she has only 4 episodes through the whole day which are nonbloody. Low suspicion of C. difficile. Discussed expectations, follow-up, provided with work-release, discussed return precautions. Patient states appreciation and agreement. - Vital Signs Vital signs: Temp Pulse Resp BP Pulse Ox 97.8 F 73 16 146/76 H 96 07/08/19 00:37 07/08/19 00:37 07/08/19 00:37 07/08/19 00:37 07/08/19 00:37 - Laboratory Result Diagrams: 07/07/19 20:30 07/07/19 20:30 Laboratory results interpreted by me: 07/07/19 07/07/19 07/07/19 20:30 20:30 20:30 WBC 11.2 H Potassium 3.5 L Carbon Dioxide 32 H Urine Blood SMALL H Discharge - Discharge Clinical Impression: Flank pain, Nausea Abdominal pain Qualifiers: Abdominal location: generalized Qualified Code(s): R10.84 - Generalized abdominal pain Diarrhea Qualifiers: Diarrhea type: unspecified type Qualified Code(s): R19.7 - Diarrhea, unspecified Condition: Stable Disposition: HOME, SELF-CARE Additional Instructions: Your imaging does not show a passing stone, appendicitis, or any concerning findings at this time. This is most likely viral/infectious and should resolve on its own with time. Take Tylenol or ibuprofen for pain, nausea medication as prescribed needed, I recommend probiotics [id number] as well. Start with bland food and slowly progress. Follow-up with primary care. Return to the emergency department for any concerning or worsening symptoms including severe worsening pain, spiking fevers, vomiting, or any other concerning or worsening symptoms. Prescriptions: Promethazine HCl [Phenergan 25 mg Tablet] 25 mg PO Q6H PRN #15 tablet PRN Reason: Forms: Return to Work Referrals: IBRAHIMA ROBERTS MD [NO LOCAL MD] - Follow up as needed
--- NOTE | 2019-07-07 22:24 | RADIOLOGY REPORT (SQ) ---
EXAM DESCRIPTION: CT ABDOMEN PELVIS WITHOUT IV CONTRAST COMPLETED DATE/TME: 07/07/2019 20:30 CLINICAL HISTORY: 38 years, Female, RIGHT FLANK PAIN HX KIDNEY STONES COMPARISON: 12/30/2018 CT TECHNIQUE: 400 Images stored on PACS. All CT scanners at this facility use dose modulation, iterative reconstruction, and/or weight based dosing when appropriate to reduce radiation dose to as low as reasonably achievable (ALARA). [facility]: Dose Right [facility]: CareDose [facility]: Dose Right [facility]: Teradose 4D [facility]: [employer] LIMITATIONS: None. FINDINGS: Limited evaluation of the lung bases is unremarkable. Osseous structures are grossly intact. Fatty infiltrative change to the liver. Spleen, adrenal glands, pancreas, kidneys are unremarkable. Status post cholecystectomy. Negative for urinary tract calculus or hydronephrosis. No gross evidence for bowel obstruction. No free air or free fluid. Normal appendix IMPRESSION: Fatty infiltrative change to the liver. Negative for urinary tract calculus or hydronephrosis TECHNICAL DOCUMENTATION: Quality ID # [id number]: Final reports with documentation of one or more dose reduction techniques (e.g., Automated exposure control, adjustment of the mA and/or kV according to patient size, use of iterative reconstruction technique) copyright 2010 [email or web address]- All Rights Reserved
[2019-07-08] MEDS ORDERED: ONDANSETRON ODT 4 MG TAB (6 TAB/ER DISP) PO PRN (00:13)
[2019-07-08 00:38] VITALS: BP 146/76
== END 2019-07-08 00:38 | disposition home or self-care (01) ==
LOC: ER 20:18
DX: R10.84 Generalized abdominal pain (principal); R19.7 Diarrhea, unspecified; R11.0 Nausea; I10 Essential (primary) hypertension; Z88.0 Allergy status to penicillin; Z87.442 Personal history of urinary calculi; Z90.49 Acquired absence of other specified parts of digestive tract
CPT/HCPCS: 99284; 96361; 96374; 96375; 36415; 85025; 81025; 80053; 81001; 74176; J1885; J2270; J2405; J7030

== ENCOUNTER 2019-10-15 11:42 | Emergency (ER) | payer BC ==
[2019-10-15] MEDS ORDERED: NORMAL SALINE 1000 ML 1,000 ML IV ONE (13:03)
[2019-10-15] MEDS ORDERED: PROCHLORPERAZINE EDISYLATE INJ 10 MG/2 ML VIAL IV ONE (13:03)
[2019-10-15] MEDS ORDERED: DIPHENHYDRAMINE HCL 50 MG/ML VIAL IV ONE (13:03)
[2019-10-15] MEDS ORDERED: KETOROLAC TROMETHAMINE INJ/PF 30 MG/1 ML SDV IV ONE (13:03)
--- NOTE | 2019-10-15 13:05 | ER Document Report ---
ED Medical Screen (RME) - General Chief Complaint: Nausea/Vomiting Stated Complaint: WEAKNESS,NAUSEA,VOMITING Time Seen by Provider: 10/15/19 12:59 Primary Care Provider: HEALTH,EMPLOYEE [ACTIVE STAFF] - Follow up as needed Mode of Arrival: Ambulatory Information source: Patient Notes: 38-year-old female presents to ED for complaint of migraine with nausea and vomiting. 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 She states she has had the headache cocktail of Compazine Benadryl and Toradol before and it was effective. She states she has been to a neurologist for her migraines. States his neurologist put her Topamax, Imitrex, and Fioricet. She states she is not able to afford these medications until she gets her insurance. He is allergic to Reglan. She states she does have sensitivity to light sound or smell. TRAVEL OUTSIDE OF THE [place] IN LAST 30 DAYS: No - HPI Onset: Yesterday Onset/Duration: Persistent Quality of pain: Sharp, Throbbing Severity: Moderate Pain Level: 4 Associated Symptoms: Headache, Nausea, Vomiting Exacerbated by: Other - Light sound and noise Relieved by: Denies Similar symptoms previously: Yes Recently seen / treated by doctor: No - Related Data Smoking: Non-smoker Frequency of alcohol use: None Drug Abuse: None Allergies/Adverse Reactions: Penicillins Allergy (Verified 10/15/19 13:02) metoclopramide HCl [From Reglan] Adverse Reaction (Intermediate, Verified 10/15/19 13:02) Tachycardia Past Medical History - General Information source: Patient - Social History Cigarette use (# per day): No Chew tobacco use (# tins/day): No Frequency of alcohol use: None Drug Abuse: None Occupation: [employer] Lives with: Spouse/Significant other Family history: Reviewed & Not Pertinent - Past Medical History Cardiac Medical History: Reports: Hx Hypertension Pulmonary Medical History: Reports: None EENT Medical History: Reports: None Neurological Medical History: Reports: Hx Migraine Endocrine Medical History: Reports: None Renal/ Medical History: Reports: Hx Kidney Stones Malignancy Medical History: Reports: None GI Medical History: Reports: None Musculoskeltal Medical History: Reports None Skin Medical History: Reports None Psychiatric Medical History: Reports: Hx Anxiety Traumatic Medical History: Reports: None Infectious Medical History: Reports: None Past Surgical History: Reports: Hx Cholecystectomy, Hx Tonsillectomy - Immunizations Immunizations up to date: Yes Hx Diphtheria, Pertussis, Tetanus Vaccination: Yes Review of Systems - Review of Systems Constitutional: No symptoms reported EENT: No symptoms reported Cardiovascular: No symptoms reported Respiratory: No symptoms reported Gastrointestinal: Nausea, Vomiting Genitourinary: No symptoms reported Female Genitourinary: No symptoms reported Musculoskeletal: No symptoms reported Skin: No symptoms reported Hematologic/Lymphatic: No symptoms reported Neurological/Psychological: Headaches - Migraine -: Yes All other systems reviewed and negative Physical Exam - Vital signs Vitals: Temp Pulse Resp BP Pulse Ox 98.6 F 88 16 142/87 H 96 10/15/19 12:21 10/15/19 12:21 10/15/19 12:21 10/15/19 12:21 10/15/19 12:21 Course - Re-evaluation Re-evalutation: 10/15/19 20:41 After performing a Medical Screening Examination, I estimate there is LOW risk for ACUTE GLAUCOMA, TEMPORAL ARTERITIS, MENINGITIS, INCRANIAL HEMORRHAGE, or ISCHEMIC STROKE thus I consider the discharge disposition reasonable. I have reevaluated this patient multiple times and no significant life threatening changes are noted. The patient and I have discussed the diagnosis and risks, and we agree with discharging home with close follow-up with the understanding that symptoms and presentations can change. We also discussed returning to the [facility] immediately if new or worsening symptoms occur. We have discussed the symptoms which are most concerning (e.g., changing or worsening symptoms, new numbness or weakness, vomiting, fever) that necessitate immediate return. - Vital Signs Vital signs: Temp Pulse Resp BP Pulse Ox 98.3 F 85 16 143/90 H 97 10/15/19 14:45 10/15/19 14:45 10/15/19 14:45 10/15/19 14:45 10/15/19 14:45 Doctor's Discharge - Discharge Clinical Impression: Migraine Qualifiers: Migraine type: unspecified Status migrainosus presence: without status migrainosus Intractability: not intractable Qualified Code(s): G43.909 - Migraine, unspecified, not intractable, without status migrainosus Nausea and vomiting Qualifiers: Vomiting type: unspecified Vomiting Intractability: non-intractable Qualified Code(s): R11.2 - Nausea with vomiting, unspecified Condition: Stable Disposition: HOME, SELF-CARE Additional Instructions: HEADACHE: The physician does not feel that the headache you are experiencing has a serious underlying cause. Most headaches are due to emotional stress, with resultant muscle tension (tension headache). Occasionally, headaches are secondary to changes in the blood vessels of the scalp (vascular headache and migraine headache). Sometimes, a headache is the first symptom of another developing illness, such as a viral infection. You have no evidence of stroke, bleeding, meningitis, or other serious cause of your headache. The treatment of headaches varies with the severity and cause of the pain. Not all headaches need pain shots. In fact, there is evidence that using narcotics for headaches may make them worse in the long run. The physician will determine the therapy that's in your best interest. If you develop a fever, if the headache is different from any you've previously experienced, or if the headache progressively worsens, then call your physician at once or go to the emergency room. USE OF DIPHENHYDRAMINE: Diphenhydramine (Benadryl) is an antihistamine and has been recommended to help treat your headache and to prevent side effects of other medications used to treat headaches. The medication can be repeated four times daily. Age Elixir (12.5 mg/tsp) 25 mg pill adult 1-2 tabs Antihistamines may cause drowsiness, especially with the first dose. Do not operate machinery or drive while under the effects of the medication. Do not combine the medication with alcohol, or with any other medication without talking to your doctor. ANTINAUSEA MEDICATION: You have been given a medication to suppress nausea and vomiting. This type of medication can be given as a shot, pill, or suppository. It will usually last for many hours. Pills and shots usually last six to eight hours, suppositories last about 12 hours. For the typical illness, only one or two doses of the medication may be necessary. Mild lightheadedness may occur. This type of medicine can cause drowsiness. Do not drive or operate dangerous machinery while under its influence. Do not mix with alcohol. See your doctor at once if you have muscle spasms or tightness, or uncon trollable motions (particularly of the neck, mouth, or jaw). Persistent vomiting or severe lightheadedness should also be evaluated by the physician. INTRAVENOUS COMPAZINE FOR HEADACHE: You have received therapy for headaches, using intravenous Compazine. This treatment is dramatically successful in relieving the headache in about 50 percent of cases. When it works, it provides a rapid method of eliminating the headache without resorting to narcotics (and the problems associated with them). Most patients still feel fully alert after the Compazine, but others may be slightly drowsy. It's best not to drive or work with machinery for six to eight hours. Do not take alcohol or other medication unless you discuss it with the doctor. If you develop tightness and spasms in your muscles, especially the neck and tongue, you should return. This is a side effect which can be treated. Ibuprofen Ibuprofen is an excellent, safe drug for pain control. In addition, it has potent antiinflammatory effects which are beneficial, especially in the treatment of injuries, arthritis, or tendonitis. It's best to take ibuprofen with food. Persons with ulcer disease or allergy to aspirin should notify their physician of this before taking ibuprofen. Take the medication exactly as prescribed. Don't take additional doses unless instructed to do so by your doctor. If you develop wheezing, shortness of breath, hives, faintness, stomach pain, vomiting, or dark black stools, return for re-evaluation at once. Intravenous (IV) Fluids As part of your care today, you received intravenous (IV) fluids. IV fluids are administered to patients who are dehydrated or to those who have certain chemical (electrolyte) abnormalities that need correcting. FOLLOW-UP CARE: If you have been referred to a physician for follow-up care, call the physicians office for an appointment as you were instructed or within the next two days. If you experience worsening or a significant change in your symptoms, notify the physician immediately or return to the Emergency Department at any time for re-evaluation. Prescriptions: Prochlorperazine Maleate [Compazine 10 mg Tablet] 10 mg PO ASDIR PRN #10 tablet PRN Reason: Forms: Elevated Blood Pressure, Return to Work Referrals: HEALTH,EMPLOYEE [ACTIVE STAFF] - Follow up as needed
[2019-10-15 15:02] VITALS: BP 143/90
== END 2019-10-15 14:48 | disposition home or self-care (01) ==
LOC: ER 11:42
DX: G43.909 Migraine, unspecified, not intractable, without status migrainosus (principal); R11.2 Nausea with vomiting, unspecified; R53.1 Weakness; I10 Essential (primary) hypertension; Z88.0 Allergy status to penicillin; Z90.49 Acquired absence of other specified parts of digestive tract; Z87.442 Personal history of urinary calculi
CPT/HCPCS: J1200; J0780; J7030

== ENCOUNTER 2020-01-27 20:38 | Emergency (ER) | payer SELFPAY ==
--- NOTE | 2020-01-27 21:11 | ER Document Report ---
ED Medical Screen (RME) - General Chief Complaint: Urinary Problem Stated Complaint: URINARY PROBLEM Time Seen by Provider: 01/27/20 21:09 Mode of Arrival: Ambulatory Information source: Patient Notes: 39-year-old female presented to ED for complaint of left flank pain that started about 4 PM. She states she has had some pain with urination that started about 4 PM also. She states she went to the bathroom felt like she had to go very bad and she just had a very small amount. She states she is also had blood on the paper after wiping when she goes to the bathroom. She states she does not have blood in the toilet just on the paper. She states she does have a history of kidney stones. The last time she was seen in the emergency room for a kidney stone was in June 2019 and at that time she did have a CAT scan. She states the only past medical history she has is kidney stones in her cholecystectomy. She does not smoke she does socially drink but does not use any illicit drugs. She is alert oriented respirations regular and unlabored speaking in full sentences. Will medicate with Toradol in the triage area. After performing a Medical Screening Examination, I spoke with the patient at length in regards to leaving the hospital against medical advice. I do not believe the patient should leave but the patient is alert oriented x4, understands the risks and benefits of staying and leaving including disability and . Pt understands that he can return at any time for further care and is more than welcome to do so. Pt verbalizes this understanding. TRAVEL OUTSIDE OF THE [place] IN LAST 30 DAYS: No - Related Data Allergies/Adverse Reactions: Penicillins Allergy (Verified 10/15/19 13:02) metoclopramide HCl [From Reglan] Adverse Reaction (Intermediate, Verified 10/15/19 13:02) Tachycardia Home Medications: losartan/HTCZ, wellbutrin XL, clonazapam, topamax, fiorcet, ambien prn Past Medical History - Social History Family history: Reviewed & Not Pertinent - Past Medical History Cardiac Medical History: Reports: Hx Hypertension Neurological Medical History: Reports: Hx Migraine Renal/ Medical History: Reports: Hx Kidney Stones. Denies: Hx Peritoneal Dialysis Psychiatric Medical History: Reports: Hx Anxiety Past Surgical History: Reports: Hx Cholecystectomy, Hx Tonsillectomy - Immunizations Immunizations up to date: Yes Hx Diphtheria, Pertussis, Tetanus Vaccination: Yes Physical Exam - Vital signs Vitals: Temp Pulse Resp BP Pulse Ox 98.6 F 96 16 142/87 H 99 01/27/20 20:42 01/27/20 20:42 01/27/20 20:42 01/27/20 20:42 01/27/20 20:42 Course - Vital Signs Vital signs: Temp Pulse Resp BP Pulse Ox 98.6 F 96 16 142/87 H 99 01/27/20 21:00 01/27/20 20:42 01/27/20 20:42 01/27/20 20:42 01/27/20 20:42
[2020-01-27 21:49] LABS: ABSOLUTE EOSINOPHILS # (AUTO) 0.3 10^3/uL (0.0-0.6); ABSOLUTE LYMPHOCYTES (AUTO) 3.4 10^3/uL (0.5-4.7); ABSOLUTE MONOCYTES (AUTO) 0.8 10^3/uL (0.1-1.4); ABSOLUTE NEUT (AUTO) 6.4 10^3/uL (1.7-8.2); BASOPHILS % (AUTO) 0.4 % (0-2); EOSINOPHILS % (AUTO) 2.9 % (0-6); HEMOGLOBIN 13.8 g/dL (12.0-15.5); LYMPHOCYTES % (AUTO) 30.9 % (13-45); MEAN CORPUSCULAR HEMOGLOBIN 30.8 pg (27.0-33.4); MEAN CORPUSCULAR HGB CONC 34.6 g/dL (32.0-36.0); MEAN CORPUSCULAR VOLUME 89 fl (80-97); MONOCYTES % (AUTO) 7.1 % (3-13); PLATELET COUNT 291 10^3/uL (150-450); RED BLOOD COUNT 4.49 10^6/uL (3.72-5.28); RED CELL DISTRIBUTION WIDTH 14.4 % (11.5-14.0); SEGMENTED NEUTROPHILS % (AUTO) 58.7 % (42-78); TOTAL CELLS COUNTED % (AUTO) 100 %; WHITE BLOOD COUNT 10.9 10^3/uL (4.0-10.5)
[2020-01-27 21:56] LABS: APPEARANCE,URINE CLOUDY; BILIRUBIN,URINE NEGATIVE (NEGATIVE); COLOR,URINE YELLOW; GLUCOSE, URINE NEGATIVE (NEGATIVE); KETONES,URINE NEGATIVE (NEGATIVE); LEUKOCYTE ESTERASE,URINE LARGE (NEGATIVE); NITRITE,URINE NEGATIVE (NEGATIVE); PROTEIN,URINE 30 mg/dL (NEGATIVE); URINE SPECIFIC GRAVITY 1.018; UROBILINOGEN,URINE NEGATIVE mg/dL (<2.0)
[2020-01-27 22:04] LABS: ALBUMIN 4.5 g/dL (3.5-5.0); ALKALINE PHOSPHATASE 77 U/L (38-126); ANION GAP 5 (5-19); ASPARTATE AMINO TRANSFERASE 20 U/L (14-36); BILIRUBIN,TOTAL 0.3 mg/dL (0.2-1.3); BLOOD UREA NITROGEN 8 mg/dL (7-20); CALCIUM 9.4 mg/dL (8.4-10.2); CARBON DIOXIDE 33 mmol/L (22-30); CHLORIDE 96 mmol/L (98-107); GLUCOSE 91 mg/dL (75-110); POTASSIUM 3.5 mmol/L (3.6-5.0); TOTAL PROTEIN 7.8 g/dL (6.3-8.2)
--- NOTE | 2020-01-27 22:42 | ER Document Report ---
ED GI/ - General Chief Complaint: Urinary Problem Stated Complaint: URINARY PROBLEM Time Seen by Provider: 01/27/20 21:09 Mode of Arrival: Ambulatory Information source: Patient Notes: tony carmen 39-year-old female presented to ED for complaint of left flank pain that started about 4 PM. She states she has had some pain with urination that started about 4 PM also. She states she went to the bathroom felt like she had to go very bad and she just had a very small amount. She states she is also had blood on the paper after wiping when she goes to the bathroom. She states she does not have blood in the toilet just on the paper. She states she does have a history of kidney stones. The last time she was seen in the emergency room for a kidney stone was in June 2019 and at that time she did have a CAT scan. She states the only past medical history she has is kidney stones in her cholecystectomy. She does not smoke she does socially drink but does not use any illicit drugs. She is alert oriented respirations regular and unlabored speaking in full sentences. Will medicate with Toradol in the triage area. my notes 39-year-old female arrived by POV with chief complaint of urgency beginning around 1600 today. Patient has had prior history of UTIs and reports the symptoms felt similar to what she was experiencing this afternoon. Symptoms have progressed from a low pain scale to a 7 out of 10 currently by 2300 patient reports she is had a history of kidney stones and was scanned here late last year. Patient also advises she has no vaginal bleeding or urinary hematuria but does admit to some pink discoloration on wiping after urination. She denies any trauma abuse fever chills cough cold. TRAVEL OUTSIDE OF THE [place] IN LAST 30 DAYS: No - HPI Timing/Duration: Sudden Quality of pain: Achy Severity at maximum: Severe Severity in ED: Severe Pain Level: 4 Location: LLQ, Left flank Vaginal bleeding (Compared to normal period): None - Related Data Allergies/Adverse Reactions: Penicillins Allergy (Verified 10/15/19 13:02) metoclopramide HCl [From Reglan] Adverse Reaction (Intermediate, Verified 10/15/19 13:02) Tachycardia Home Medications: losartan/HTCZ, wellbutrin XL, clonazapam, topamax, fiorcet, ambien prn Past Medical History - General Information source: Patient - Social History Smoking Status: Never Smoker Cigarette use (# per day): No Chew tobacco use (# tins/day): No Smoking Education Provided: No Frequency of alcohol use: None Drug Abuse: None Lives with: Family Family History: Reviewed & Not Pertinent Patient has suicidal ideation: No Patient has homicidal ideation: No - Past Medical History Cardiac Medical History: Reports: Hx Hypertension Neurological Medical History: Reports: Hx Migraine Renal/ Medical History: Reports: Hx Kidney Stones. Denies: Hx Peritoneal Dialysis Psychiatric Medical History: Reports: Hx Anxiety Past Surgical History: Reports: Hx Cholecystectomy, Hx Tonsillectomy - Immunizations Immunizations up to date: Yes Hx Diphtheria, Pertussis, Tetanus Vaccination: Yes Review of Systems - Review of Systems Constitutional: No symptoms reported EENT: No symptoms reported Cardiovascular: No symptoms reported Respiratory: No symptoms reported Gastrointestinal: See HPI, Abdominal pain - LLQ 7/10 Genitourinary: See HPI, Dysuria, Frequency, Urgency Female Genitourinary: No symptoms reported Musculoskeletal: See HPI, Back pain - left flank pin /10 Skin: No symptoms reported Hematologic/Lymphatic: No symptoms reported Neurological/Psychological: No symptoms reported Physical Exam - Vital signs Vitals: Temp Pulse Resp BP Pulse Ox 98.6 F 96 16 142/87 H 99 01/27/20 20:42 01/27/20 20:42 01/27/20 20:42 01/27/20 20:42 01/27/20 20:42 Interpretation: Hypertensive - General General appearance: Anxious - HEENT Head: Normocephalic, Atraumatic Eyes: Normal Pupils: PERRL - Respiratory Respiratory status: No respiratory distress Chest status: Nontender Breath sounds: Normal Chest palpation: Normal - Cardiovascular Rhythm: Regular Heart sounds: Normal auscultation Murmur: No - Abdominal Inspection: Obese Distension: No distension Bowel sounds: Normal Tenderness: Tender - LLQ inguinal area - Genitourinary External exam: Normal - Back Back: Normal - Extremities General upper extremity: Normal inspection, Nontender, Normal color, Normal ROM, Normal temperature General lower extremity: Normal inspection, Nontender, Normal color, Normal ROM, Normal temperature, Normal weight bearing. No: Saravanan's sign - Neurological Neuro grossly intact: Yes Cognition: Normal Orientation: AAOx4 Carver Coma Scale Eye Opening: Spontaneous Carver Coma Scale Verbal: Oriented Cesar Coma Scale Motor: Obeys Commands Carver Coma Scale Total: 15 Speech: Normal Motor strength normal: LUE, RUE, LLE, RLE Sensory: Normal - Psychological Associated symptoms: Anxious - Skin Skin Temperature: Warm Skin Moisture: Dry Skin Color: Normal Course - Vital Signs Vital signs: Temp Pulse Resp BP Pulse Ox 98.6 F 96 16 142/87 H 99 01/27/20 21:00 01/27/20 20:42 01/27/20 20:42 01/27/20 20:42 01/27/20 20:42 - Laboratory Result Diagrams: 01/27/20 21:25 01/27/20 21:25 Laboratory results interpreted by me: 01/27/20 01/27/20 01/27/20 21:25 21:25 21:25 WBC 10.9 H RDW 14.4 H Sodium 134.1 L Potassium 3.5 L Chloride 96 L Carbon Dioxide 33 H Urine Protein 30 H Urine Blood MODERATE H Ur Leukocyte Esterase LARGE H - Diagnostic Test Radiology reviewed: Reports reviewed Radiology results interpreted by me: 01/28/20 00:[address] abd pel per radioloogy Critical Care Note - Critical Care Note Total time excluding time spent on procedures (mins): 90 Comments: I advised patient of CT and lab findings Discharge - Discharge Clinical Impression: Flank pain, acute Abdominal pain Qualifiers: Abdominal location: left lower quadrant Qualified Code(s): R10.32 - Left lower quadrant pain UTI (urinary tract infection) Qualifiers: Urinary tract infection type: acute pyelonephritis Qualified Code(s): N10 - Acute pyelonephritis Condition: Good Disposition: HOME, SELF-CARE Instructions: Abdominal Pain ([facility]), Urinary Tract Infection ([facility]) Additional Instructions: Follow-up with personal doctor this week and return to ER symptoms persist take medicines as directed drink noncarbonated fluids like water or Gatorade diluted or Pedialyte ; Prescriptions: Tamsulosin HCl [Flomax 0.4 mg Cap.sr] 0.4 mg PO DAILY #7 cap.sr.24h Levofloxacin [Levaquin 500 mg Tablet] 500 mg PO DAILY 7 Days #7 tablet Forms: Return to Work
[2020-01-27] MEDS ORDERED: NORMAL SALINE 1000 ML 1,000 ML IV ONE (22:55)
[2020-01-27] MEDS ORDERED: LEVOFLOXACIN 750 MG/D5W RTU 750 MG/150 ML RTUPB IV ONE (22:56)
[2020-01-27] MEDS ORDERED: FENTANYL CITRATE INJ/PF 100 MCG/2 ML AMPUL IV ONE (22:57)
[2020-01-27] MEDS ORDERED: DIPHENHYDRAMINE HCL 50 MG/ML VIAL IV ONE (22:59)
--- NOTE | 2020-01-27 23:54 | RADIOLOGY REPORT (SQ) ---
CLINICAL INDICATION: left flank groin pain. . TECHNIQUE: Noncontrast spiral axial CT imaging was obtained of the abdomen and pelvis with multiplanar reconstructions. This exam was performed according to our departmental dose-optimization program, which includes automated exposure control, adjustment of the mA and/or kV according to patient size and/or use of iterative reconstruction techniques. COMPARISON: July 07, 2019. CORRELATION: None. FINDINGS: Abdomen: The lung bases are grossly clear. The heart is of normal size. No evidence of pleural or pericardial fluid. The liver is homogeneous. The gallbladder is surgically absent. The pancreas is of grossly normal contour on this noncontrast examination. The spleen is unremarkable. The adrenals are unremarkable. The kidneys appear grossly normal without evidence of urolithiasis or hydronephrosis. There is no evidence of free air. No free fluid. No bulky adenopathy. Abdominal aorta is nonaneurysmal. Pelvis: The bowel is nonobstructed. The bowel is unopacified with oral contrast. Pelvic contents are unremarkable. The appendix is normal. Visualized bones are unremarkable. IMPRESSION: No acute intra-abdominal process. The cause of the patient's left flank and groin pain is not identified on this examination..
[2020-01-28] MEDS ORDERED: HYDROCODONE/ACETAMINOPHEN 5-325 MG (6 TAB/ER DISP) PO PRN (00:17)
[2020-01-28 02:03] VITALS: BP 123/76
== END 2020-01-28 01:57 | disposition home or self-care (01) ==
LOC: ER 20:38
DX: N10 Acute pyelonephritis (principal); R10.32 Left lower quadrant pain; R10.9 Unspecified abdominal pain; R39.198 Other difficulties with micturition; R30.0 Dysuria; R35.0 Frequency of micturition; R39.15 Urgency of urination; M54.9 Dorsalgia, unspecified; Z88.0 Allergy status to penicillin; Z88.8 Allergy status to other drugs, medicaments and biological substances; Z79.899 Other long term (current) drug therapy; I10 Essential (primary) hypertension
CPT/HCPCS: 99285; 96375; 96365; 36415; 87040; 87086; 84703; 85025; 80053; 81001; 74176; J1200; J3010; J7030; J1956

== ENCOUNTER 2020-08-08 09:40 | Emergency (ER) | payer SELFPAY ==
[2020-08-08 10:01] VITALS: BP 132/88
[2020-08-08 10:22] LABS: ABSOLUTE BASOPHILS # (AUTO) 0.1 10^3/uL (0.0-0.2); ABSOLUTE EOSINOPHILS # (AUTO) 0.2 10^3/uL (0.0-0.6); ABSOLUTE LYMPHOCYTES (AUTO) 2.4 10^3/uL (0.5-4.7); ABSOLUTE MONOCYTES (AUTO) 0.5 10^3/uL (0.1-1.4); ABSOLUTE NEUT (AUTO) 4.5 10^3/uL (1.7-8.2); BASOPHILS % (AUTO) 0.7 % (0-2); EOSINOPHILS % (AUTO) 2.4 % (0-6); HEMATOCRIT 37.3 % (36.0-47.0); HEMOGLOBIN 12.6 g/dL (12.0-15.5); MEAN CORPUSCULAR HEMOGLOBIN 30.5 pg (27.0-33.4); MEAN CORPUSCULAR HGB CONC 33.9 g/dL (32.0-36.0); MEAN CORPUSCULAR VOLUME 90 fl (80-97); MONOCYTES % (AUTO) 6.7 % (3-13); PLATELET COUNT 307 10^3/uL (150-450); RED BLOOD COUNT 4.15 10^6/uL (3.72-5.28); RED CELL DISTRIBUTION WIDTH 13.9 % (11.5-14.0); SEGMENTED NEUTROPHILS % (AUTO) 59.2 % (42-78); TOTAL CELLS COUNTED % (AUTO) 100 %; WHITE BLOOD COUNT 7.7 10^3/uL (4.0-10.5)
[2020-08-08 10:32] LABS: APPEARANCE,URINE SLIGHTLY-CLOUDY; BILIRUBIN,URINE NEGATIVE (NEGATIVE); COLOR,URINE YELLOW; GLUCOSE, URINE NEGATIVE (NEGATIVE); KETONES,URINE NEGATIVE (NEGATIVE); LEUKOCYTE ESTERASE,URINE TRACE (NEGATIVE); NITRITE,URINE NEGATIVE (NEGATIVE); PROTEIN,URINE 30 mg/dL (NEGATIVE); URINE SPECIFIC GRAVITY 1.021; UROBILINOGEN,URINE NEGATIVE mg/dL (<2.0)
[2020-08-08 10:40] LABS: ALKALINE PHOSPHATASE 71 U/L (38-126); ANION GAP 6 (5-19); ASPARTATE AMINO TRANSFERASE 18 U/L (14-36); BILIRUBIN,DIRECT 0.1 mg/dL (0.0-0.4); BILIRUBIN,TOTAL 0.4 mg/dL (0.2-1.3); BLOOD UREA NITROGEN 13 mg/dL (7-20); CALCIUM 9.5 mg/dL (8.4-10.2); CARBON DIOXIDE 32 mmol/L (22-30); CHLORIDE 99 mmol/L (98-107); GLUCOSE 96 mg/dL (75-110); POTASSIUM 3.6 mmol/L (3.6-5.0); TOTAL PROTEIN 7.3 g/dL (6.3-8.2)
[2020-08-08] MEDS ORDERED: ONDANSETRON 4 MG TAB.RAPDIS PO ONE (11:13)
--- NOTE | 2020-08-08 11:14 | ER Document Report ---
ED Medical Screen (RME) - General Chief Complaint: Flank Pain Stated Complaint: ABDOMINAL PAIN/DIARRHEA Time Seen by Provider: 08/08/20 11:12 Primary Care Provider: MENDEZ EVANGELISTA MD [Primary Care Provider] - Follow up as needed Notes: Patient presents with right flank pain and urinary symptoms past 4 days. Patient complains of nausea without any vomiting. Patient denies any vaginal bleeding or discharge. Patient states she was started on Macrobid via a telehealth appointment and denies any improvement of her symptoms. I have greeted and performed a rapid initial assessment of this patient. A comprehensive ED assessment and evaluation of the patient, analysis of test results and completion of the medical decision making process will be conducted by additional ED providers. TRAVEL OUTSIDE OF THE [place] IN LAST 30 DAYS: No - Related Data Allergies/Adverse Reactions: Penicillins Allergy (Verified 08/08/20 11:09) metoclopramide HCl [From Reglan] Adverse Reaction (Intermediate, Verified 08/08/20 11:09) Tachycardia Past Medical History - Social History Chew tobacco use (# tins/day): No Drug Abuse: None Family history: Reviewed & Not Pertinent - Past Medical History Cardiac Medical History: Reports: Hx Hypertension Neurological Medical History: Reports: Hx Migraine Renal/ Medical History: Reports: Hx Kidney Stones. Denies: Hx Peritoneal Dialysis Psychiatric Medical History: Reports: Hx Anxiety Past Surgical History: Reports: Hx Cholecystectomy, Hx Tonsillectomy - Immunizations Immunizations up to date: Yes Hx Diphtheria, Pertussis, Tetanus Vaccination: Yes Physical Exam - Vital signs Vitals: Temp Pulse Resp BP Pulse Ox 98.2 F 90 20 132/88 H 99 08/08/20 10:00 08/08/20 10:00 08/08/20 10:00 08/08/20 10:00 08/08/20 10:00 - Back Back: CVA tenderness - Right Course - Vital Signs Vital signs: Temp Pulse Resp BP Pulse Ox 98.2 F 90 20 132/88 H 99 08/08/20 10:00 08/08/20 10:00 08/08/20 10:00 08/08/20 10:00 08/08/20 10:00 - Laboratory Result Diagrams: 08/08/20 10:01 08/08/20 10:01 Laboratory results interpreted by me: 08/08/20 08/08/20 10:01 10:01 Sodium 136.8 L Carbon Dioxide 32 H Urine Protein 30 H Ur Leukocyte Esterase TRACE H Doctor's Discharge - Discharge Referrals: MENDEZ EVANGELISTA MD [Primary Care Provider] - Follow up as needed
--- NOTE | 2020-08-08 11:39 | RADIOLOGY REPORT (SQ) ---
EXAM DESCRIPTION: CT ABD/PELVIS NO ORAL OR IV IMAGES COMPLETED DATE/TIME: 08/08/2020 11:23 am REASON FOR STUDY: r flank pain COMPARISON: 01/27/2020 TECHNIQUE: CT scan of the abdomen and pelvis performed without intravenous or oral contrast. Images reviewed with lung, soft tissue, and bone windows. Reconstructed coronal and sagittal MPR images revi ewed. All images stored on PACS. All CT scanners at this facility use dose modulation, iterative reconstruction, and/or weight based d osing when appropriate to reduce radiation dose to as low as reasonably achievable (ALARA). [facility]: Dose Right [facility]: CareDose [facility]: Dose Right [facility]: Teradose 4D [facility]: PeeP Mobile Digital RADIATION DOSE: CT Rad equipment meets quality standard of care and radiation dose reduction techniq ues were employed. CTDIvol: 18.4 mGy. DLP: 1025 mGy-cm.mGy. LIMITATIONS: None. FINDINGS: LOWER CHEST: No significant findings. No nodules or infiltrates. NON-CONTRASTED LIVER, SPLEEN, ADRENALS: Evaluation limited by lack of IV contrast. No identified sign ificant masses. PANCREAS: No masses. No peripancreatic inflammatory changes. GALLBLADDER: Surgically absent. RIGHT KIDNEY AND URETER: No suspicious masses. Assessment limited by lack of IV contrast. No signif icant calcifications. No hydronephrosis or hydroureter. LEFT KIDNEY AND URETER: No suspicious masses. Assessment limited by lack of IV contrast. No signifi cant calcifications. No hydronephrosis or hydroureter. AORTA AND RETROPERITONEUM: No aneurysm. No retroperitoneal masses or adenopathy. BOWEL AND PERITONEAL CAVITY: No obvious masses or inflammatory changes. No free fluid. APPENDIX: Normal. PELVIS, BLADDER, AND ABDOMINAL WALL:2.9 cm right adnexal lesion most consistent with ovarian cyst. BONES: No significant findings. OTHER: No other significant finding. IMPRESSION: Small right ovarian cyst. This measures 2.9 cm. No other significant findings in the a bdomen or pelvis. COMMENT: Quality ID # [id number]: Final reports with documentation of one or more dose reduction techniques (e.g., Automated exposure control, adjustment of the mA and/or kV according to patient size, use of iterative reconstruction technique) TECHNICAL DOCUMENTATION: JOB ID: [id number] 2010 [employer]- All Rights Reserved Reading location - IP[facility]workstation name: [email or web address]
[2020-08-08] MEDS ORDERED: LEVOFLOXACIN 750 MG TABLET PO ONE (14:04)
[2020-08-08] MEDS ORDERED: KETOROLAC TROMETHAMINE 60 MG/2 ML SDV IM ONE (14:05)
[2020-08-08] MEDS ORDERED: PHENAZOPYRIDINE HCL 200 MG TABLET PO ONE (14:05)
--- NOTE | 2020-08-08 14:10 | ER Document Report ---
ED General - General Chief Complaint: Flank Pain Stated Complaint: ABDOMINAL PAIN/DIARRHEA Time Seen by Provider: 08/08/20 11:12 Primary Care Provider: MENDEZ EVANGELISTA MD [ACTIVE STAFF] - Follow up as needed TRAVEL OUTSIDE OF THE [place] IN LAST 30 DAYS: No - HPI Notes: Patient is a 39-year-old female presents emergency department for evaluation of dysuria, urinary frequency, right flank pain. Her symptoms of been present for the last 4 days. She was seen in a telehealth visit, started on Macrobid, states she has not had any relief. She has had some chills but no miguel fevers to her knowledge. No vomiting. She has had some urinary urgency. She denies any vaginal discharge or abnormal vaginal bleeding. - Related Data Allergies/Adverse Reactions: Penicillins Allergy (Verified 08/08/20 11:09) metoclopramide HCl [From Reglan] Adverse Reaction (Intermediate, Verified 08/08/20 11:09) Tachycardia Past Medical History - General Information source: Patient - Social History Smoking Status: Never Smoker Chew tobacco use (# tins/day): No Drug Abuse: None Family History: Reviewed & Not Pertinent Patient has homicidal ideation: No - Past Medical History Cardiac Medical History: Reports: Hx Hypertension Neurological Medical History: Reports: Hx Migraine Renal/ Medical History: Reports: Hx Kidney Stones. Denies: Hx Peritoneal Dialysis Psychiatric Medical History: Reports: Hx Anxiety Past Surgical History: Reports: Hx Cholecystectomy, Hx Tonsillectomy - Immunizations Immunizations up to date: Yes Hx Diphtheria, Pertussis, Tetanus Vaccination: Yes Review of Systems - Review of Systems Constitutional: See HPI EENT: No symptoms reported Cardiovascular: No symptoms reported Respiratory: No symptoms reported Gastrointestinal: See HPI Genitourinary: See HPI Female Genitourinary: No symptoms reported Musculoskeletal: No symptoms reported Skin: No symptoms reported Neurological/Psychological: No symptoms reported -: Yes All other systems reviewed and negative Physical Exam - Vital signs Vitals: Temp Pulse Resp BP Pulse Ox 98.2 F 90 20 132/88 H 99 08/08/20 10:00 08/08/20 10:00 08/08/20 10:00 08/08/20 10:00 08/08/20 10:00 - Notes Notes: Vital signs reviewed, please refer to chart. Head is normocephalic, atraumatic. Pupils equal round, reactive to light. Neck is supple without meningismus. Heart is regular rate and rhythm. Lungs are clear to auscultation bilaterally. Abdomen is soft, nontender, normoactive bowel sounds throughout. Examination of the spine yields no midline tenderness to palp. She has paraspinal musculature tenderness on the right lumbar paraspinal musculature with mild CVA tenderness noted. Extremities without cyanosis, clubbing. Posterior calves are nontender. Peripheral pulses are equal. Skin is warm and dry. Patient is awake, alert, neurological exam is nonfocal. Course - Re-evaluation Re-evalutation: 08/08/20 14:07 Patient presents emergency department for evaluation. Laboratory investigations were obtained and medications as through triage. The patient was further given Percocet, Levaquin, Toradol here. She stated her symptoms are similar to renal colic she has had in the past. CT scan revealed only a small ovarian cyst, which I doubt very highly is the etiology of this patient's pain. She has significant symptoms of a UTI, has a history of pyelonephritis. She does not meet criteria for pyelonephritis at this time, but I do believe it is reasonable to the head and treat her considering her lack of clinical improvement. We will switch her antibiotic from Macrobid to Levaquin. She is to follow-up closely with primary care. I will send her home with prescription strength anti- inflammatories as well as Zofran. She is to return to the emergency department with worsening or new concerning symptoms of any sort. - Vital Signs Vital signs: Temp Pulse Resp BP Pulse Ox 98.2 F 90 20 132/88 H 99 08/08/20 10:00 08/08/20 10:00 08/08/20 10:00 08/08/20 10:00 08/08/20 10:00 - Laboratory Result Diagrams: 08/08/20 10:01 08/08/20 10:01 Laboratory results interpreted by me: 08/08/20 08/08/20 10:01 10:01 Sodium 136.8 L Carbon Dioxide 32 H Urine Protein 30 H Ur Leukocyte Esterase TRACE H - Diagnostic Test Radiology reviewed: Reports reviewed Radiology results interpreted by me: 08/08/20 14:08 Abdomen/Pelvis CT 08/08/20 11:13 IMPRESSION: Small right ovarian cyst. This measures 2.9 cm. No other significant findings in the abdomen or pelvis. Discharge - Discharge Clinical Impression: Right ovarian cyst, Nausea Urinary tract infection Qualifiers: Urinary tract infection type: site unspecified Hematuria presence: without hematuria Qualified Code(s): N39.0 - Urinary tract infection, site not specified Condition: Stable Disposition: HOME, SELF-CARE Instructions: Urinary Tract Infection ([facility]), Urinary Anesthetic Agent ([facility]) Additional Instructions: Rest, stay well-hydrated. Take medications as prescribed. Follow-up with your primary care provider this week. Return the emergency department if you develop worsening or new concerning symptoms of any sort. Referrals: MENDEZ EVANGELISTA MD [ACTIVE STAFF] - Follow up as needed
== END 2020-08-08 15:03 | disposition home or self-care (01) ==
LOC: ER 09:40
DX: N83.201 Unspecified ovarian cyst, right side (principal); N39.0 Urinary tract infection, site not specified; R11.0 Nausea; R10.9 Unspecified abdominal pain; R19.7 Diarrhea, unspecified; R30.0 Dysuria; R35.0 Frequency of micturition; R39.15 Urgency of urination; Z88.0 Allergy status to penicillin; Z88.8 Allergy status to other drugs, medicaments and biological substances; I10 Essential (primary) hypertension
CPT/HCPCS: 99285; 96372; 36415; 83690; 85025; 81025; 80053; 81001; 74176; J1885; S0119; J3490